=== PATIENT | female | born 1955 | race Caucasian/White ===

== ENCOUNTER 2020-07-29 12:23 | Outpatient (CLI) | payer MEDICARE, SELFPAY ==
--- NOTE | ~2020-07-29 | MM_ITS ---
EXAMINATION: MM screening willie BI w jackeline HISTORY: Screening mammogram TECHNIQUE: Craniocaudal and mediolateral oblique 3-D tomosynthesis images were obtained and synthetic 2-D images were generated. CAD analysis was submitted and interpreted. COMPARISON: 07/30/2018 diagnostic left digital mammogram and limited left breast ultrasound 06/23/2018, 10/14/2015 bilateral digital screening mammogram examinations BREAST PARENCHYMAL COMPOSITION: The breasts are heterogeneously dense, which may obscure small masses . FINDINGS: There is an approximately 11 mm circumscribed low-density opacity in the outer mid left pablo ast at mid to posterior depth, likely benign. Diagnostic left mammogram and left breast ultrasound re commended for confirmation. Otherwise there is no evidence of suspicious mass, calcification, or architectural distortion to sugg est malignancy in either breast. There has been no suspicious interval change. IMPRESSION: 1. 11 mm circumscribed mass in the outer mid left breast 2. Diagnostic left mammogram and left breast ultrasound examination are recommended. BI-RADS Category 0: Incomplete: Needs additional imaging evaluation. Reviewed, dictated and finalized at location A. OM BOW MAKER IMPRESSION: 1. 11 mm circumscribed mass in the outer mid left breast 2. Diagnostic left mammogram and left breast ultrasound examination are recomme nded. BI-RADS Category 0: Incomplete: Needs additional imaging evaluation.
== END 2020-07-29 12:24 | disposition home or self-care (01) ==
LOC: ANHIMG 12:26
PROVIDERS: PCP Internal Medicine; Visit Provider Obstetrics & Gynecology
DX: Z12.31 Encounter for screening mammogram for malignant neoplasm of breast (principal); R92.8 Other abnormal and inconclusive findings on diagnostic imaging of breast
CPT/HCPCS: 77063; 77067

== ENCOUNTER 2020-09-16 17:52 | Emergency (ER) | payer MEDICARE, SELFPAY ==
--- NOTE | ~2020-09-16 | CT_ITS ---
EXAMINATION: CT abdomen pelvis w con DATE: 09/16/2020 19:24 INDICATION: Abdominal pain. TECHNIQUE: Computed tomography (CT) of the abdomen and pelvis was performed with 100 cc Omnipaque 350 intravenous contrast. The dose-length product was 276.75 mGy-cm. Automated exposure control and iter ative reconstruction technique were employed. COMPARISON: CT dated 09/25/2008. FINDINGS: Lung bases are unremarkable. Heart size is normal. No significant pleural or pericardial ef fusion. Small hiatal hernia. Status post cholecystectomy with expected prominence of the bile ducts. The liver, spleen, pancreas, adrenal glands and left kidney are unremarkable. There is a right renal cyst. There are renal parapelvic cysts. Nonobstructive bowel gas pattern. No free air or free fluid. No acute osseous abnormality.The appendix is normal. No lymphadenopathy. No significant vascular abno rmality. IMPRESSION: 1. No acute abdominal abnormality. Reviewed, dictated and finalized at location A. ER BUFF SEWER
[2020-09-16 18:06] VITALS: BP 146/91; PULSE 104; RESP 16; TEMP 36.7; O2SAT 96
[2020-09-16 18:22] LABS: Basophils Percent Auto 0.3 % (0.2-1.2); Eosinophils Absolute Auto 0.2 K/mm3 (0-0.3); Eosinophils Percent Auto 1.4 % (0-4.4); Hematocrit 44.8 % (37.0-47.0); Hemoglobin 14.9 g/dL (12.0-15.0); Immature Granulocyte Absolute 0.04 K/mm3 (0.00-0.031); Immature Granulocyte Percent A 0.3 % (0-0.5); Lymphocytes Absolute Auto 2.96 K/mm3 (0.9-3.2); Lymphocytes Percent Auto 25.1 % (18.3-44.2); Mean Corpuscular HGB Conc 33.3 g/dl (32-36); Mean Corpuscular Hemoglobin 30.2 pg (26-34); Mean Corpuscular Volume 90.9 fl (80-100); Mean Platelet Volume 9.5 fl (7.4-10.4); Monocytes Absolute Auto 0.5 K/mm3 (0.1-0.6); Monocytes Percent Auto 3.8 % (2.6-8.5); Neutrophils Absolute Auto 8.2 K/mm3 (1.3-6.7); Neutrophils Percent Auto 69.1 % (45.5-73.1); Platelet Count Result 322 k/mm3 (150-375); Red Blood Count 4.93 M/mm3 (4.2-5.4); Red Cell Distribution Width 12.8 % (11.5-14.5); White Blood Count 11.8 K/mm3 (4.5-10.0)
--- NOTE | 2020-09-16 18:28 | ED.ABDPAIN ---
HPI - Abdominal Pain General Chief Complaint: Abdominal Pain Stated Complaint: abd pain Time Seen by Provider: 09/16/20 18:26 Source: patient Mode of arrival: ambulatory Limitations: no limitations History of Present Illness HPI narrative: Patient is a 65-year-old female complaining of diffuse abdominal pain, nonradiating, dull, 6 out of 10, accompanied by abdominal distention started today after drinking carbonated water. Patient denies any chest pain, shortness of breath, nausea, vomiting, diarrhea, fever or chills. Patient denies any urinary symptoms. Related Data Home Medications Medication Instructions Recorded Confirmed estradiol 0.5 mg tablet 0.5 mg PO DAILY 06/20/19 06/26/20 liothyronine 5 mcg tablet 5 mcg PO DAILY 06/20/19 06/26/20 niacin 400 mg (inositol niacinate cap PO 06/20/19 500 mg) capsule prasterone (dhea)-calcium tablet PO 06/20/19 carbonate 10 mg-47 mg calcium tablet vehicle base no.24 (bulk) applic MISCELLANE 06/20/19 levothyroxine 88 mcg tablet 88 mcg PO DAILY 06/24/19 06/26/20 progesterone micronized 200 mg 200 mg PO ONCE 06/24/19 06/26/20 capsule Allergies Allergy/AdvReac Type Severity Reaction Status Date / Time codeine AdvReac Mild Headache Verified 09/16/20 18:44 prochlorperazine AdvReac Mild Headache Verified 09/16/20 18:44 morphine AdvReac Headache Verified 09/16/20 18:44 Review of Systems Review of Systems: All systems reviewed & are unremarkable except as noted in HPI and below Constitutional: Constitutional: Denies body ache(s), Denies chills, Denies excessive sweating, Denies fatigue, Denies fever(s), Denies headache(s), Denies lethargy, Denies malaise, Denies weakness and Denies weight loss Eyes: Eyes: Denies blurry vision, Denies change in vision and Denies loss of vision ENT: Denies dizziness, Denies ear discharge, Denies headache(s), Denies lip swelling, Denies epistaxis, Denies nasal congestion, Denies neck pain, Denies throat swelling and Denies tongue swelling Cardiovascular: Cardiovascular: Denies chest pain, Denies chest pain at rest, Denies chest pain with activity, Denies diaphoresis, Denies rapid heart rate, Denies edema, Denies irregular heart rhythm, Denies lightheadedness, Denies palpitations, Denies dyspnea and Denies dyspnea on exertion Respiratory: Respiratory: Denies chest congestion, Denies cough, Denies hemoptysis, Denies dyspnea and Denies dyspnea on exertion Gastrointestinal: Gastrointestinal: Denies melena, Denies hematochezia, Denies diarrhea, Denies nausea, Denies vomiting and Denies hematemesis Musculoskeletal: Musculoskeletal: Denies abnormal gait, Denies deformity, Denies joint swelling, Denies limited range of motion, Denies neck pain and Denies numbness Neurologic: Denies Abnormal speech present, Denies abnormal gait, Denies confusion, Denies dizziness, Denies headache(s), Denies focal weakness, Denies loss of vision, Denies numbness, Denies Other visual disturbances, Denies Sensory deficit (Neuro) and Denies weakness Psychiatric: Psychiatric: Denies confusion, Denies depression, Denies auditory hallucinations, Denies homicidal ideation and Denies suicidal ideation Endocrine: Endocrine: Denies cold intolerance, Denies excessive sweating, Denies fatigue, Denies heat intolerance and Denies palpitations Hematologic/Lymphatic: Hematologic/Lymphatic: Denies easy bleeding and Denies easy bruising Allergic/Immunologic: Allergic/Immunologic: Denies lip swelling, Denies throat swelling and Denies tongue swelling PMFSH Family History Family History Mother Hypertension Father Patient's father is in good health Social History Social History Smoking status: Never smoker Second hand tobacco smoke exposure: No Alcohol intake: current Exam Const: General: cooperative, healthy appearing, comfortable, no acute distress, well developed
[2020-09-16 18:35] LABS: Alanine Aminotransferase 18 U/L (4-35); Albumin Level 4.3 g/dL (3.5-5.1); Alkaline Phosphatase 80 U/L (38-126); Anion Gap 9 mmol/L (8-16); Aspartate Amino Transferase 27 U/L (14-36); Bilirubin,Total 0.3 mg/dL (0.2-1.3); Blood Urea Nitrogen 17 mg/dL (7-17); Calcium 9.9 mg/dL (8.4-10.2); Carbon Dioxide 27 mmol/L (22-30); Chloride 105 mmol/L (98-107); Estimated CRCL calculation 51 ml/min; Estimated Glomerular Filt Rate > 60; Glucose 118 mg/dL (65-105); Lipase 62 U/L (23-300); Potassium 3.9 mmol/L (3.4-5.0); Sodium 141 mmol/L (137-145)
[2020-09-16 18:37] LABS: Add Urine Microscopic? YES; Appearance Urine Clear (Clear); Bacteria Urine Trace /hpf; Bilirubin Urine Negative (Negative); Color Urine Yellow (Yellow); Glucose Urine UA Negative (Negative); Ketones Urine Trace mg/dL (Negative); Leukocyte Esterase Ur 1+ LEU/UL (Negative); Mucus Urine Rare /lpf; Nitrate Urine Negative (Negative); Protein Urine 1+ mg/dL (Negative); Specific Grav Ur 1.028 (1.001-1.035); Squamous Epithelial Cell Urine Occasional /hpf (Few); Transitional Epi Cells Urine Rare /hpf (None Seen); Urobilinogen Urine Negative mg/dL (<2.0); WBC Urine 21-30 /hpf
[2020-09-16] MEDS: LACTATED RINGERS 1,000 ML 999 ML IV CONT (18:39)
[2020-09-16 18:40] LABS: Blood Urine Negative (Negative)
[2020-09-16] MEDS: HYDROmorphone HCL INJ (*CRX) 1 MG/ML SYR 0.5 MG IV PUSH (18:54)
[2020-09-16] MEDS: ONDANSETRON INJ 4 MG/2 ML VIAL IV PUSH (18:54)
[2020-09-16 20:20] VITALS: BP 134/82; PULSE 86; RESP 16; TEMP 36.7; O2SAT 99
== END 2020-09-16 20:21 | disposition home or self-care (01) ==
PROVIDERS: Emergency Medicine; Emergency Provider Emergency Medicine; PCP Internal Medicine
DX: R10.10 Upper abdominal pain, unspecified (principal)
CPT/HCPCS: 36415; 74177; 80053; 81001; 83690; 85025; 87086; 87088; 96361; 96374; 96375; 99284; J1170; J2405; J7120; Q9967

== ENCOUNTER 2020-09-21 13:11 | Outpatient (CLI) | payer MEDICARE, SELFPAY ==
--- NOTE | ~2020-09-21 | MMUS_ITS ---
EXAMINATION: MM diagnostic willie LT w jackeline, US breast LT complete HISTORY: Follow-up left breast masses TECHNIQUE: Additional 3-D tomosynthesis images of the left breast were performed and synthetic 2-D im ages were generated. CAD analysis was submitted and interpreted. High resolution complete left breast ultrasound was performed. COMPARISON: Comparison to multiple prior studies sequentially, with oldest reviewed study dated 12/2015. BREAST PARENCHYMAL COMPOSITION: The breasts are heterogenously dense, which may obscure small masses. FINDINGS: MAMMOGRAPHIC FINDINGS: There is a mass in the mid outer aspect of the left breast, middle third, partially obscured by fibro glandular tissue. There is another mass medially in the left breast, definitely only seen on CC view ULTRASOUND: Left breast ultrasound: There are multiple cysts in the left breast, largest at 2:00 position, 4 cm f rom the nipple measuring 1.8 cm maximum dimension. These correspond to the mammogram graphic findings . No suspicious masses to suggest malignancy. IMPRESSION: 1. No evidence for malignancy in the left breast. Benign cysts. 2. Routine yearly screening mammogram and regular clinical breast examination are recommended. BI-RADS Category 2: Benign finding(s). Reviewed, dictated and finalized at location A. IMPRESSION: 1. No evidence for malignancy in the left breast. Benign cysts. 2. Routine yearly screening mammogram and regular clinical breast examination a re recommended. BI-RADS Category 2: Benign finding(s).
== END 2020-09-21 13:12 | disposition home or self-care (01) ==
LOC: ANHIMG 13:12
PROVIDERS: PCP Internal Medicine; Visit Provider Obstetrics & Gynecology
DX: R92.8 Other abnormal and inconclusive findings on diagnostic imaging of breast (principal)
CPT/HCPCS: 76641; 77061; 77065; G0279

== ENCOUNTER → 2021-06-01 09:53 | Outpatient (CLI) | payer MEDICARE, SELFPAY ==
[2021-06-01 17:55] LABS: SARS-CoV-2 RNA PCR Negative
== END ==
PROVIDERS: PCP Internal Medicine; Visit Provider Internal Medicine
DX: R68.89 Other general symptoms and signs (principal); Z20.822 Contact with and (suspected) exposure to COVID-19
CPT/HCPCS: C9803; U0003; U0005

== ENCOUNTER 2022-12-13 12:19 | Outpatient (CLI) | payer MEDICARE, SELFPAY ==
--- NOTE | 2022-12-13 16:25 | WPDPFTINT ---
PFT Procedure Performed PFT Procedure Performed Spirometry with Pre/Post Bronchodilator Plethysmography (Lung Vol) Diffusing Cap (DLCO) Flow Vol Loop PFT Interpretation This is a pulmonary function test with pre and post-bronchodilator spirometry, plethysmography and diffusing capacity. The test was performed and results interpreted in accordance with the 2019 and 2005 ATS/ERS Task Force guidelines respectively using the Global Lung Function Initiative-2012 reference equations. Patient demonstrated good effort and cooperation. Reproducibility criteria were met. The quality of the pre bronchodilator spirometry maneuver was Grade A and post bronchodilator spirometry maneuver was Grade A. Findings: Spirometry: There is decreased maximal expiratory airflow at low lung volumes with concave expiratory flow tracing. The contour the inspiratory flow tracing is normal. The pre bronchodilator FVC is 2.51 L, 97% predicted. The pre bronchodilator FEV1 is 1.73 L, 86% predicted. The pre bronchodilator FEV1: FVC ratio 69%. The post bronchodilator FVC is 2.39 L, representing a 5% decrease. The post bronchodilator FEV1 is 1.79 L, representing a 4% increase. The post bronchodilator FEV1: FVC ratio is 75%. Plethysmography: The total lung capacity is 4.10 L, 89% predicted. The functional residual capacity is 2.57 L, 98% predicted. The residual volume is 1.59 L, 79% predicted. Diffusing capacity: The diffusing capacity unadjusted for hemoglobin and carboxyhemoglobin is 16.3, 84% predicted. The diffusing capacity adjusted for alveolar volume is 4.54, 102% predicted. Impression: The spirometry is normal without evidence of an obstructive abnormality. There is no significant improvement after inhaling a single dose of albuterol. The lung volumes are normal. The diffusing capacity is normal. There are no prior studies for comparison
== END 2022-12-13 12:20 | disposition home or self-care (01) ==
LOC: ANHPFT 12:19
PROVIDERS: PCP Internal Medicine; Visit Provider Internal Medicine Pulmonary Disease
DX: J45.909 Unspecified asthma, uncomplicated (principal)
CPT/HCPCS: 94060; 94726; 94729

== ENCOUNTER 2024-10-11 22:46 | Observation (INO) | payer MEDICARE, SELFPAY ==
--- NOTE | ~2024-10-11 | XR_ITS ---
CHEST RADIOGRAPH CLINICAL HISTORY: chest pain . COMPARISON: None available TECHNIQUE: Single portable view of the chest. FINDINGS The cardiomediastinal silhouette is unremarkable. The lungs are clear. IMPRESSION: No focal infiltrate or effusion. Reviewed, dictated and finalized at location A.
--- NOTE | ~2024-10-11 | CT_ITS ---
EXAMINATION: CTA chest abdomen pelvis DATE: 10/12/2024 00:10 INDICATION: Chest pain radiating to the back TECHNIQUE: Computed tomographic angiography (CTA) of the chest, abdomen and pelvis was performed with 100 cc of Omnipaque-350 intravenous contrast. Additional 3D reconstructions utilizing rotating maxim um intensity projection (MIP) were performed. Automated exposure control and iterative reconstruction technique were employed. The dose-length product was 349.97 mGy-cm. COMPARISON: CT abdomen pelvis dated 09/16/2020 FINDINGS: CHEST: Mild biapical pleural-parenchymal scarring and mild dependent atelectasis in bilateral lower lobes. N o pneumonia, pulmonary edema, pleural effusion or pneumothorax. Heart size is normal. No pericardial effusion. Atherosclerotic coronary artery calcification. Thoracic aorta is normal in caliber with no dissection. No pulmonary embolism. No pathologically enlarged thoracic lymphadenopathy. Mild thoracic dextrocurvature with mild spondylosis.. ABDOMEN AND PELVIS: Common bile duct is dilated to 9 mm likely related to prior cholecystectomy with surgical clips the g allbladder fossa. Liver is normal with no intrahepatic biliary ductal dilation. Spleen, pancreas, maldonado ateral adrenal glands and left kidney are normal. 2.1 cm right renal cyst. There are few sigmoid dive rticula without adjacent inflammatory stranding to suggest diverticulitis. Small bowel and appendix a re normal. Bladder, uterus and bilateral adnexa are unremarkable. No free intraperitoneal gas or flui d. No pathologically enlarged abdominal or pelvic lymphadenopathy. Minimal plaque along the normal ca liber abdominal aorta with no dissection. Circumaortic left renal veins with larger caliber retroaort ic vein.18 degrees lumbar levoscoliosis with mild to moderate spondylosis. IMPRESSION: 1. No aortic aneurysm or dissection. 2. No acute cardiopulmonary disease or acute intra-abdominal/pelvic process. Reviewed, dictated and finalized at location A.
--- NOTE | 2024-10-11 22:50 | ECG_ITS ---
Test Date: 2024-10-11 22:57:15 Measurements Intervals Ermine Rate: 120 P: 63 [place]: 113 QRS: -6 QRSD: 84 T: 73 QT: 336 QTc: 476 Interpretive Statements SINUS TACHYCARDIA WITH SHORT [place] INTERVAL POSSIBLE RIGHT VENTRICULAR CONDUCTION DELAY BORDERLINE ST-T WAVE ABNORMALITY- HIGH LATERAL LEADS BASELINE ARTIFACT- I, II, III, AVR, AVL, AVF, V1-V6 ABNORMAL ECG No previous ECG available for comparison Electronically Signed On 10-12-2024 07:14:31 CDT by Pasha Gomez D.O.
[2024-10-11 22:51] VITALS: BP 127/81; PULSE 120; RESP 20; TEMP 36.8; O2SAT 100
[2024-10-11 22:57] VITALS: RESP 22
[2024-10-11 22:58] VITALS: PULSE 118
[2024-10-11 23:07] LABS: Basophils Absolute Auto 0.1 K/mm3 (0.0-0.1); Basophils Percent Auto 0.4 % (0.2-1.2); Eosinophils Absolute Auto 0.1 K/mm3 (0-0.3); Eosinophils Percent Auto 0.9 % (0-4.4); Hematocrit 41.4 % (37.0-47.0); Hemoglobin 13.5 g/dL (12.0-15.0); Immature Granulocyte Absolute 0.04 K/mm3 (0.00-0.031); Immature Granulocyte Percent A 0.2 % (0-0.5); Lymphocytes Absolute Auto 3.48 K/mm3 (0.9-3.2); Lymphocytes Percent Auto 21.2 % (18.3-44.2); Mean Corpuscular HGB Conc 32.6 g/dl (32-36); Mean Corpuscular Hemoglobin 31.1 pg (26-34); Mean Corpuscular Volume 95.4 fl (80-100); Mean Platelet Volume 9.5 fl (7.4-10.4); Monocytes Absolute Auto 0.8 K/mm3 (0.1-0.6); Monocytes Percent Auto 4.8 % (2.6-8.5); Neutrophils Absolute Auto 11.9 K/mm3 (1.3-6.7); Neutrophils Percent Auto 72.5 % (45.5-73.1); Platelet Count Result 284 k/mm3 (150-375); Red Blood Count 4.34 M/mm3 (4.2-5.4); Red Cell Distribution Width 12.4 % (11.5-14.5); White Blood Count 16.4 K/mm3 (4.5-10.0)
--- OUTSIDE RECORDS SUMMARY | 2024-10-11 23:13 | XMS_ITS | Clinical Summary ---
Author Organization [facility] Address [address] [place] [address] Care Team Providers Care Controlled Area Checker Name Role Phone Irving Joy Fernanda BRUNNER Primary Care Provider [phone] Source Comments [facility],non-owned Affiliates and Associated Physician Practices is amultiple site organization consisting of ambulatory clinics and hospital sitesin [place], [place], [place] and [place]. This disclosure is being madepursuant to the Care Everywhere program and may not contain all information available regarding this patient. Last updated 18.[facility] Allergies Active Allergy Reactions Criticality Noted Date Comments Codeine 06/20/2017 Prochlorperazine 06/20/2017 Immunizations Name Administration Dates Next Due HEP B VACCINE, ADULT 3 DOSE 12/20/2017, 8,06/20/2017 Social History Tobacco Use Types Packs/Day Years Used Date Smoking Tobacco: Never Assessed Sex and Gender Information Value Date Recorded Sex Assigned at Not on file Gender Identity Not on file Sexual Orientation Not on file Plan of Treatment Health Maintenance Due Date Last Done Comments BONE DENSITY TESTING 1955 COLOGUARD (AGES 45-75) - COL ON CA SCREENING 1955 COLON MONITORING 1953 COLONOSCOPY - COLON CA SCREENING 1953 CT COLONOGRAPHY - COLON CA SCREENING 1953 Colorectal Cancer Screening 1955 FIT - COLON CA SCREENING 1953 FLEX SIG - COLON CA SCREENING 1953 LIPID TESTING 1953 MAMMOGRAM 1953 HEPATITIS C SCREENING 04/02/1971 DTAP/TDAP/TD VACCINES (1 - Tdap) 1972 PNEUMOCOCCAL VACCINE 50+ (1 of 1 - PCV) 2003 ZOSTER VACCINE (1 of 2) 2003 COVID-19 VACCINE (1 - 2023-2 5 season) 2024 INFLUENZA VACCINE (#1) 2024 DEPRESSION SCREENING 07/10/2024 Respiratory Syncytial Virus (RSV) Vaccine Pt: or over 60 yrs (1 - 1-dose 75+ series) 2028 HEPATITIS B VACCINE Completed 12/20/2017, 07/21/2017, 06/20/2017 HIB VACCINE Aged Out No longer eligi ble based on patient's age to complete this topic HPV VACCINE Aged Out No longer eligi ble based on patient's age to complete this topic MENINGOCOCCAL (Group B) VACCINE SHARED DECISION-MAKING Aged Out No longer eligible based on patient's age to complete this topic MENINGOCOCCAL GROUPS A/C/Y/W VACCINE Aged Out No longer eligible b ased on patient's age to complete this topic Care Teams Controlled Area Checker Relationship Specialty Start Date End Date Irving Joy DO [address] [facility] [address] [place] [address] PCP - General Internal Medicine 06/20/17
--- OUTSIDE RECORDS SUMMARY | 2024-10-11 23:13 | XMS_ITS | CONTINUITY OF CARE DOCUMENT ---
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 Name Role Phone Randy BRUNER, Tigist Unavailable REJI PUENTES MD Unavailable EUGENIA GERBER DO Unavailable [phone] PROBLEMS Condition Status Date Provider Notes Cardiovascular screening completed - Tigist Padilla MD Atherosclerosis, coronary--CCS 278 -09/30- Nl perfusion 11/30 active Tigist Padilla MD Family hx of heart disease, AFIB active Tigist Padilla MD Hypothyroidism active Tigist Padilla MD Mitral regurgitation, moderate active Tigist Padilla MD Atrial fib paroxysmal completed - Tigist Padilla MD Chest pain active 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 CAD--mild w/o obstruction in LAD, 50-60% RCA, 06/2024 active Andrea Penny ENCOUNTERS Date Type Provider Location Encounter Diag nosis - In-person encounter Office Visit Tigist Padilla MD [facility] - In-person encounter Office Visit Tigist Padilla MD [facility] [place] [facility] CAD--mild w/o obstru ction in LAD, 50-60% RCA, 06/2024 - In-person encounter Office Visit Tigist Padilla MD [facility] Chest pain - In-person encounter Office Visit Tigist Padilla MD [facility] Atrial fib paroxysmal - In-person encounter Office Visit Tigist Padilla MD [facility] Atherosclerosis, coronary--CCS 278 -09/30- Nl perfusion 11/30Mitral regurgitation, moderate - In-person encounter Office Visit Tigist Padilla MD [facility] Cardiovascular screeningAtherosclerosis, coronary--CCS 278 -24- Nl perfusion 11/30Family hx of heart disease, AFIBHypothyroidism VITAL SIGNS Date Observation Value Provider Body Mass Index (Ratio) 23.43 kg/m2 Aime Padilla MD blood pressure, diastolic 87 mm[Hg] Ti ruddy Cohen blood pressure, systolic 131 mm[Hg] Tif kristy Cohen oxygen saturation, oximetry 98 % Catie Cohen pulse rate 94 /min Catie Saunder s blood pressure, cuff size regular Ti ffabrenna Cohen weight E&M 124 [lb_av] Catie Saunder s height E&M 61 [in_i] Catie Saunder s Body Mass Index (Ratio) 23.80 kg/m2 Aime Padilla MD blood pressure, diastolic 73 mm[Hg] Ka yla Ruple blood pressure, systolic 124 mm[Hg] Sakshi la Ruple oxygen saturation, oximetry 99 % Taylor Ruyair pulse rate 78 /min Taylor Ruple weight E&M 126 [lb_av] Taylor Ruple height E&M 61 [in_i] Taylor Ruple Body Mass Index (Ratio) 23.99 kg/m2 Aime Padilla MD blood pressure, diastolic 79 mm[Hg] Angelita nkLogic blood pressure, systolic 117 mm[Hg] Peace kLog blood pressure, diastolic 79 mm[Hg] Batsheva Wiley blood pressure, systolic 117 mm[Hg] Amrita Wiley oxygen saturation, oximetry 100 % Barbie Wiley pulse rate 99 /min Barbie Wiley respiratory rate E&M 12 /min Baribe Wiley weight E&M 127 [lb_av] Barbie Wiley height E&M 61 [in_i] [facility], [facility] regular Batsheva Wiley Body Mass Index (Ratio) 25.32 kg/m2 Aime Padilla MD respiratory rate E&M 16 /min Shanon Posley blood pressure, diastolic 77 mm[Hg] Le slie Posley blood pressure, systolic 134 mm[Hg] Les lie Posley pulse rate 81 /min Shanon Posley oxygen saturation, oximetry 96 % Shanon Posley blood pressure, cuff size regular Le slie Posley weight E&M 134 [lb_av] Shanon Posley height E&M 61 [in_i] Shanon Posley Body Mass Index (Ratio) 25.32 kg/m2 Aime Padilla MD blood pressure, cuff size regular Ke rri Bipin blood pressure, diastolic 80 mm[Hg] Ke rri Gruenejadeneldneftaly blood pressure, systolic 142 mm[Hg] Kenton Voss oxygen saturation, oximetry 97 % Carolina Voss respiratory rate E&M 12 /min Carolina hancock pulse rate 95 /min Carolina Upton lder weight E&M 134 [lb_av] Carolina Upton lder height E&M 61 [in_i] Carolina Upton er Body Mass Index (Ratio) 23.43 kg/m2 Aime Padilla MD blood pressure, diastolic 81 mm[Hg] Li nkLogic blood pressure, systolic 146 mm[Hg] Peace kLogic pulse rate 96 /min Lu [place] blood pressure, diastolic 81 mm[Hg] Franko [facility] blood pressure, systolic 146 mm[Hg] Nitesh [facility] oxygen saturation, oximetry 98 % [facility] respiratory rate E&M 14 /min Lu Greg iller weight E&M 124 [lb_av] [facility] height E&M 61 [in_i] [facility] blood pressure, cuff size regular [facility] ALLERGIES Allergy Name Onset Date Reaction Criticality Status CODEINE High Criticality active MORPHINE High Criticality active COMPAZINE High Criticality active RESULTS Date Observation Value Provider Reference Range Interpretation Location 3 ferritin, serum 47 ng/mL LinkLogic 15-150 3 magnesium, serum 2.4 mg/dL Link[facility] 1.6-2.3 High 3 iron saturation percent, serum 19 % [facility] 15-55 3 iron, serum 74 ug/dL [facility] 27-139 3 iron binding capacity, unsaturated 307 ug/dL [facility] 211-275 4764/08/2 3 iron binding capacity, total 381 ug/dL [facility] 940-707 2400/08/2 3 lipoprotein, beta, serum, point, quantitative, calculated 60 mg/dL [facility] 0-99 3 HDL cholesterol, serum 55 mg/dL [facility] >39 3 triglyceride, serum, random 87 mg/dL [facility] 0-149 3 cholesterol, serum 132 mg/dL [facility] 685-478 4581/08/2 3 alanine aminotransferase (SGPT), serum 17 1/L [facility] 0-32 3 aspartate aminotransferase (SGOT), serum 24 1/L [facility] 0-40 3 alkaline phosphatase, serum 68 1/L [facility] 44-121 3 bilirubin, serum, total 0.4 mg/dL [facility] 0.0-1.2 3 globulin, serum 2.6 [facility] 1.5-4.5 3 albumin, serum 3.9 g/dL [facility] 3.9-4.9 3 protein, total, serum 6.5 g/dL [facility] 6.0-8.5 3 calcium, serum 8.9 mg/dL [facility] 8.7-10.3 3 carbon dioxide, venous blood 22 mmol/L [facility] 20-29 3 chloride, serum 104 mmol/L [facility] 96-106 3 potassium, serum 4.5 mmol/L [facility] 3.5-5.2 3 sodium, serum 139 mmol/L [facility] 114-031 9160/08/2 3 urea nitrogen/creatinine ratio, serum 22 [facility] 12-28 3 creatinine, serum 0.95 mg/dL [facility] 0.57-1.00 3 urea nitrogen, blood 21 mg/dL [facility] 8-27 3 blood glucose, random 92 mg/dL [facility] 70-99 2 basophil count, absolute 0.1 x10E3/uL [facility] 0.0-0.2 2 Eosinophil Absolute Count 0.2 X10E3/UL [facility] 0.0-0.4 2 monocyte count, blood, automated 0.6 X10E3/UL [facility] 0.1-0.9 2 lymphocyte count, blood, automated 2.5 X10E3/UL [facility] 0.7-3.1 2 Absolute Neutrophils 5.1 X10E3/UL [facility] 1.4-7.0 2 basophils as percent of blood leukocytes 1 % [facility] Not Estab. 2 eosinophils as percent of blood leukocytes 2 % [facility] Not Estab. 2 monocytes as percent of blood leukocytes 7 % [facility] Not Estab. 2 lymphocytes as percent of blood leukocytes 30 % [facility] Not Estab. 2 neutrophils as percent of blood leukocytes 60 % [facility] Not Estab. 2 platelet count 291 X10E3/UL [facility] 766-209 8169/08/2 2 red blood cell distribution width 13.4 % [facility] 11.7-15.4 2 mean corpuscular hemoglobin concentration, RBC 32.5 G/DL [facility] 31.5-35.7 2 mean corpuscular hemoglobin, RBC 29.8 pg [facility] 26.6-33.0 2 mean corpuscular volume, RBC 92 fL [facility] 79-97 2 hematocrit, blood 40.3 % [facility] 34.0-46.6 2 hemoglobin, blood 13.1 g/dL [facility] 11.1-15.9 2 erythrocyte (RBC) count 4.39 X10E6/UL [facility] 3.77-5.28 2 leukocyte count, blood 8.4 X10E3/UL [facility] 3.4-10.8 HISTORY OF MEDICATION USE Medication Status Instructions Dates Provider Indications Com ments acyclovir 800 mg tablet active Catie Cohen clopidogrel 75 mg tablet active TAKE 1 TABLET BY MOUTH DAILY Andrea Penny rosuvastatin 20 mg tablet active TAKE 1 TABLET BY MOUTH DAILY Taylor Cuha metoprolol succinate 25 mg tablet extended release 24 hr active TAKE 1 TABLET BY MOUTH DAILY Jami Alvarado RN metoprolol succinate 25 mg tablet extended release 24 hr completed Take 1 tablet by mouth once a day - Jami Alvarado RN aspirin 81 mg tablet,delayed release (DR/EC) active Take 1 tablet by mouth once a day Andrea Penny rosuvastatin 20 mg tablet completed Take 1 tablet by mouth once a day - Taylor Chua montelukast 10 mg tablet active [facility] alprazolam 0.25 mg tablet active Take 1 as needed as directed [facility] ondansetron 4 mg tablet,disintegrat ing active [facility] estradiol 0.01% (0.1 mg/gram) cream active Apply 1 mg once a day [facility] ondansetron HCl 4 mg tablet active [facility] estradiol 1 mg tablet active [facility] liothyronine 5 mcg tablet active once a day [facility] SEMAGLUTIDE 1MG/ML INJECTION Milliliters active MONTH #3 INJECT 0.5ML (50 SYRINGE UNITS) SUBCUTANEOUSLY ONCE WEEKLY. DISCARD VIAL 28 DAYS AFTER PUNCTURE. [facility] Myrbetriq 25 mg tablet extended release 24 hr active [facility] Dulera 200-5 mcg/actuation HFA aerosol inhaler active [facility] nitrofurantoin monohyd/m-cryst 100 mg capsule active [facility] Ventolin HFA 90 mcg/actuation HFA aerosol inhaler active [facility] progesterone micronized 200 mg capsule active [facility] Synthroid 88 mcg tablet active [facility] nitrofurantoin macrocrystal 100 mg capsule active [facility] SOCIAL HISTORY Date Observation Value Provider smoking status Current every day smoker R jennifer Penny smoking status Current every day smoker R jennifer Penny smoking status Current every day smoker R jennifer Penny smoking status Current every day smoker Adonay Yi FUNCTIONAL STATUS Date Observation Value Provider HRA, CV Assess/Plan, Angina (inactive) Management Plan continue current therapy Andrea Penny HRA, CV Assess/Plan, Angina (inactive) Management Plan continue current therapy Andrea Penny HRA, CV Assess/Plan, Angina (inactive) Management Plan continue current therapy Andrea Penny INSURANCE PROVIDERS Payer name Policy type / Coverage type Steve red green party ID [employer] [id number] [place] [employer] Medicare [id number] ADVANCE DIRECTIVES Name Date DISCUSSED - NO DECISION MADE TREATMENT PLAN Date Name Performer Cardiology: H er updated medication list for this problem includes: Liothyronine 5 Mcg Tablet (Liothyronine) ..... Once a day Synthroid 88 Mcg Tablet (Levothyroxine) Tigist Padilla MD Cardiology Tigist Padilla MD Cardiology: H er updated medication list for this problem includes: Clopidogrel 75 Mg Tablet (Clopidogrel) ..... Take 1 tablet by mouth daily Metoprolol Succinate 25 Mg Tablet Extended Release 24 Hr (Metoprolol succinate) ..... Take 1 tablet by mouth daily Aspirin 81 Mg Tablet,delayed Release (dr/ec) (Aspirin) ..... Take 1 tablet by mouth once a day Tigist Padilla MD Cardiology:This visi t has been a part of the consistent, comprehensive, and ongoing management of the chronic medical condition(s) listed above for the patient. Her updated medication list for this problem includes: Clopidogrel 75 Mg Tablet (Clopidogrel) ..... Take 1 tablet by mouth daily Metoprolol Succinate 25 Mg Tablet Extended Release 24 Hr (Metoprolol succinate) ..... Take 1 tablet by mouth daily Aspirin 81 Mg Tablet,delayed Release (dr/ec) (Aspirin) ..... Take 1 tablet by mouth once a day Tigist Padilla MD Cardiology: H er updated medication list for this problem includes: Liothyronine 5 Mcg Tablet (Liothyronine) ..... Once a day Synthroid 88 Mcg Tablet (Levothyroxine) Tigist Padilla MD Cardiology: H er updated medication list for this problem includes: Clopidogrel 75 Mg Tablet (Clopidogrel) ..... Take 1 tablet by mouth daily Metoprolol Succinate 25 Mg Tablet Extended Release 24 Hr (Metoprolol succinate) ..... Take 1 tablet by mouth daily Aspirin 81 Mg Tablet,delayed Release (dr/ec) (Aspirin) ..... Take 1 tablet by mouth once a day Tigist Padilla MD Cardiology Tigist Padilla MD Cardiology: H er updated medication list for this problem includes: Clopidogrel 75 Mg Tablet (Clopidogrel) ..... Take 1 tablet by mouth daily Metoprolol Succinate 25 Mg Tablet Extended Release 24 Hr (Metoprolol succinate) ..... Take 1 tablet by mouth daily Aspirin 81 Mg Tablet,delayed Release (dr/ec) (Aspirin) ..... Take 1 tablet by mouth once a day Tigist Padilla MD Cardiology:This visi t has been a part of the consistent, comprehensive, and ongoing management of the chronic medical condition(s) listed above for the patient. Her updated medication list for this problem includes: Clopidogrel 75 Mg Tablet (Clopidogrel) ..... Take 1 tablet by mouth daily Metoprolol Succinate 25 Mg Tablet Extended Release 24 Hr (Metoprolol succinate) ..... Take 1 tablet by mouth daily Aspirin 81 Mg Tablet,delayed Release (dr/ec) (Aspirin) ..... Take 1 tablet by mouth once a day Tigist Padilla MD Cardiology:with elev ated calcium score H er updated medication list for this problem includes: Metoprolol Succinate 25 Mg Tablet Extended Release 24 Hr (Metoprolol succinate) ..... Take 1 tablet by mouth daily Aspirin 81 Mg Tablet,delayed Release (dr/ec) (Aspirin) ..... Take 1 tablet by mouth once a day T his visit has been a part of the consistent, comprehensive, and ongoing management of the chronic medical condition(s) listed above for the patient. Tigist Padilla MD Cardiology:with elev ated calcium score H er updated medication list for this problem includes: Metoprolol Succinate 25 Mg Tablet Extended Release 24 Hr (Metoprolol succinate) ..... Take 1 tablet by mouth daily Aspirin 81 Mg Tablet,delayed Release (dr/ec) (Aspirin) ..... Take 1 tablet by mouth once a day Jami RIOJASP Cardiology: H er updated medication list for this problem includes: Liothyronine 5 Mcg Tablet (Liothyronine) ..... Once a day Synthroid 88 Mcg Tablet (Levothyroxine) Jami Carpenter [facility] Cardiology:unchanged EF normal A steffany Carpenter [facility] Cardiology:She has b een experiencing anginal type chest pain more progressive in nature E cho with normal EF, moderate MR N egative stress cardiolite earlier this year E levated coronary calcium score of 278 W ill do EKG and plan C c ontinue asa, statin and BB W ill plan [facility] to look for ischemia H er updated medication list for this problem includes: Metoprolol Succinate 25 Mg Tablet Extended Release 24 Hr (Metoprolol succinate) ..... Take 1 tablet by mouth daily Aspirin 81 Mg Tablet,delayed Release (dr/ec) (Aspirin) ..... Take 1 tablet by mouth once a day Jami Carpenter [facility] Cardiology: H er updated medication list for this problem includes: Metoprolol Succinate 25 Mg Tablet Extended Release 24 Hr (Metoprolol succinate) ..... Take 1 tablet by mouth once a day Aspirin 81 Mg Tablet,delayed Release (dr/ec) (Aspirin) ..... Take 1 tablet by mouth once a day T his visit has been a part of the consistent, comprehensive, and ongoing management of the chronic medical condition(s) listed above for the patient. Tigist Padilla MD Cardiology: H er updated medication list for this problem includes: Metoprolol Succinate 25 Mg Tablet Extended Release 24 Hr (Metoprolol succinate) ..... Take 1 tablet by mouth once a day Aspirin 81 Mg Tablet,delayed Release (dr/ec) (Aspirin) ..... Take 1 tablet by mouth once a day Andrea Penny Cardiology: H er updated medication list for this problem includes: Liothyronine 5 Mcg Tablet (Liothyronine) ..... Once a day Synthroid 88 Mcg Tablet (Levothyroxine) Andrea Penny Cardiology Andrea Penny Cardiology: H er updated medication list for this problem includes: Metoprolol Succinate 25 Mg Tablet Extended Release 24 Hr (Metoprolol succinate) ..... Take 1 tablet by mouth once a day Aspirin 81 Mg Tablet,delayed Release (dr/ec) (Aspirin) ..... Take 1 tablet by mouth once a day Andrea Reillyamerica Cardiology: O rders: C omplete Echo (21939) S tress Exercise Cardiolite (CPT-49216) Andrea Reillyi Cardiology: O rders: C omplete Echo (97485) S tress Exercise Cardiolite (CPT-18324) Andrea Reillyi Cardiology: H er updated medication list for this problem includes: Liothyronine 5 Mcg Tablet (Liothyronine) ..... Once a day Synthroid 88 Mcg Tablet (Levothyroxine) Andrea Penny Date Name PROTHROMBIN TIME WIT H INR LIPID PANEL CBC (INCLUDES DIFF/P LT) BASIC METABOLIC PANE L W/EGFR Complete Echo Carotid Duplex Bilat eral MAGNESIUM IRON AND TOTAL IRON BINDING CAPACITY FERRITIN CBC (INCLUDES DIFF/P LT) LIPID PANEL COMPREHENSIVE METABO LIC PANEL, W/EGFR Stress Exercise Card iolite Complete Echo CT, Coronary Calcium Score HISTORY OF PROCEDURES Procedure Date Procedure Name Provider Procedure Notes S tatus Complex e/m visit add on Tigist Padilla MD completed Complex e/m visit add on Tigist Padilla MD completed Complex e/m visit add on Tigist Padilla MD completed Complex e/m visit add on Tigist Padilla MD completed Complex e/m visit add on Tigist Padilla MD completed CT- Coronary CA score Tigist Padilla MD completed
--- OUTSIDE RECORDS SUMMARY | 2024-10-11 23:13 | XMS_ITS | Continuity of Care Document ---
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 [address] , [address], [place], [address], [place]. tel:[phone] Family History Family Member Type Diagnosis Age At Onset No Information Payers Payer name Insurance type Covered libertarian ID Authoriza tion(s) No Information Social History Type Description Quantity Date Captured Comments Sex Female Smoking Status No Information Chief Complaint And Reason For Visit No Information Reason For Referral Reason For Referral No Information History Of Present Illness Encounter Date Complaint History Of Prese nt Illness No Information Functional Status Date Functional Assessmen t No Information Instructions Date Instruction Additional Infor mation No Information Assessments Type Assessment Date No Information Patient Care Teams Name Effective Dates (start - stop) Status Members No Information
[2024-10-11 23:16] LABS: Alanine Aminotransferase 19 U/L (6-35); Albumin Level 4.3 g/dL (3.5-5.1); Alkaline Phosphatase 65 U/L (38-126); Anion Gap 13 mmol/L (4-12); Aspartate Amino Transferase 24 U/L (14-36); Bilirubin,Total 0.4 mg/dL (0.2-1.3); Blood Urea Nitrogen 24 mg/dL (7-17); Carbon Dioxide 24 mmol/L (22-30); Chloride 103 mmol/L (98-107); Estimated CRCL calculation 46 ml/min; Estimated Glomerular Filt Rate > 60; Glucose 124 mg/dL (65-110); Lipase 106 U/L (23-300); Potassium 3.6 mmol/L (3.4-5.0); Sodium 140 mmol/L (137-145)
[2024-10-11 23:19] LABS: Partial Thromboplastin Time 26.7 Seconds (22.3-36.8); Prothrombin Time 13.8 Seconds (11.1-14.7)
[2024-10-11 23:26] LABS: Troponin I < 0.012 ng/mL (0.000-0.034)
--- NOTE | 2024-10-11 23:27 | ED_ITS ---
HPI - General Adult General Chief complaint: Unspecified Stated complaint: chest pain Time Seen by Provider: 10/11/24 23:02 Source: patient, family and RN notes reviewed Mode of arrival: EMS Limitations: no limitations History of Present Illness HPI narrative: Patient presents with chest pain and SOB starting at 20:00. A bit earlier, she had taken a pill and states it felt like a pill was stuck in her throat. Rated 8/10 in severity. This has happened before and had been attributed to GERD and for that she takes 20mg Pepcid. She also has a legal adviser, Dr Padilla, through [facility]. Has been told she has 2 leaky heart denisa, believes mitral and another. Describes the pain as heavy. Radiates bilaterally and becomes stabbing. History of asthma. EMS administered aspirin. Swallowing makes it worse. Pain also radiates to back. History of a cardiac cath July 04 which showed 50-60% stenosis of RCA but no stenting. On clopidogrel. Cardiac risk factors HTN: Yes (per patient it was an erroneous diagnosis but she was placed on antihypertensives approximately 6 mos ago, metoprolol 12.5) HLD: Yes DM: 0 Obese: 0 Smoker: 0 Personal history [place]/TIA/CVA or CAD: Known CAD with 50-60% stenosis on cath with no stents Fam Hx [place] in first degree relative <65yo: 0 Related Data Home Medications ?Medication ?Instructions ?Recorded ?Confirmed ?Last Taken ?Type estradiol 0.5 mg tablet 0.5 mg PO HS 06/20/19 10/12/24 10/11/24 20:00 History vehicle base no.24 (bulk) See Rx Instructions miscellaneous 06/20/19 10/12/24 10/11/24 08:00 History (Versabase Cream) .COMPLEX levothyroxine 88 mcg tablet 88 mcg PO DAILY 06/24/19 10/12/24 10/11/24 07:00 History (Synthroid) progesterone micronized 200 mg 200 mg PO QPM 06/24/19 10/12/24 10/11/24 08:00 History capsule estradiol 0.01% (0.1 mg/gram) 1 g vaginal 2XW 07/17/23 10/12/24 10/10/24 History vaginal cream (Estrace) semaglutide (weight loss) 2.4 2.4 mg subcut WEEKLY 07/17/23 10/12/24 10/08/24 History mg/0.75 mL subcutaneous pen injector metoprolol succinate 25 mg 12.5 mg PO HS 01/17/24 10/12/24 10/11/24 20:00 History tablet,extended release 24 hr rosuvastatin 20 mg tablet 20 mg PO HS 01/17/24 10/12/24 10/11/24 20:00 History clopidogrel 75 mg tablet 75 mg PO DAILY 08/05/24 10/12/24 10/11/24 20:00 History Balance of Nature vitamins See Rx Instructions .Route .COMPLEX 10/12/24 10/12/24 10/11/24 08:00 History fruit/vegetable Ecosleep See Rx Instructions .Route .COMPLEX 10/12/24 10/12/24 Unknown History Eye promise OTC See Rx Instructions .Route .COMPLEX 10/12/24 10/12/24 10/11/24 08:00 History alprazolam 0.25 mg tablet 0.125 mg PO HS PRN anxiety 10/12/24 10/12/24 Unknown History famotidine 20 mg tablet (Pepcid) 20 mg PO DAILY 10/12/24 10/12/24 10/11/24 08:00 History liothyronine 5 mcg tablet 15 mcg PO QAM 10/12/24 10/12/24 10/11/24 08:00 History loratadine 10 mg tablet 10 mg PO DAILY 10/12/24 10/12/24 Unknown History magnesium glycinate 400 mg PO HS for sleep 10/12/24 10/12/24 10/11/24 20:00 History montelukast 10 mg tablet 10 mg PO QPM 10/12/24 10/12/24 10/11/24 20:00 History ondansetron 4 mg disintegrating 4 mg translingual Q8H PRN nausea 10/12/24 10/12/24 Unknown History tablet and vomiting prasterone (dhea) 25 mg capsule 25 mg PO QAM 10/12/24 10/12/24 10/11/24 08:00 History pro-biotic See Rx Instructions .Route .COMPLEX 10/12/24 10/12/24 10/11/24 08:00 History Allergies Allergy/AdvReac Type Severity Reaction Status Date / Time codeine AdvReac Mild Headache Verified 10/12/24 07:02 prochlorperazine AdvReac Mild Headache Verified 10/12/24 07:02 morphine AdvReac Headache Verified 10/12/24 07:02 [facility] Past Medical History Medical History Leaky heart valve URI, acute Screening mammogram, encounter for Pruritic rash Internal hemorrhoids Dietary counseling and surveillance (09/21/16) Colon cancer screening Bilateral lower extremity edema High cholesterol Asthma Surgical History Surgical History History of cardiac cath Jun 2024 History of hysterectomy, 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 History of dilation and curettage (07/14/03) hscope d&c/endometrial ablation--menometrorrhagia History of endometrial ablation (07/14/03) hscope d&c/endometrial ablation--menometrorrhagia History of partial thyroidectomy (~2003) right thyroidectomy History of cholecystectomy (~1999) History of Family History Family History (Updated 10/12/24 @ 08:14 by Sommer Osorio RN) Mother Dementia Chronic renal failure Hypertension Father Cerebrovascular accident A-fib Social History Social History Smoking status: Never smoker Second hand tobacco smoke exposure: Yes Alcohol intake: never Substance use: never Substance use type: does not use Do You Feel Safe in your Home?: Yes Lack of Transportation: No Lack of Food: Never True Current Housing: I Have Housing Concerned About Future Housing: No Difficulty Paying Gas/Electric Bills: No Difficulty Paying for Meds: No Currently Unemployed: No Education: Bachelor's Degree Difficulty w/ Childcare or Family Care: YES Living arrangements: with family Spiritual care concerns: No Exam 2 Narrative: GENERAL: Well-appearing, well-nourished, and in no acute distress. HEAD: Normocephalic, atraumatic. EYES: Non injected, non icteric ENT: Nares clear, no rhinorrhea or epistaxis. NECK: Supple. CHEST: Speaking in full sentences. No respiratory distress. HEART: Regular rate and rhythm. . ABDOMEN: Soft, nondistended. EXTREMITIES: Normal range of motion. No bilateral lower extremity edema. SKIN: Warm, dry, no rash. NEURO: No focal deficits. Alert and oriented x3. PSYCH: Normal mood and affect. Course Vital Signs Vital signs: Vital Signs Temperature 98.2 F 10/11/24 22:51 Pulse Rate 120 H 10/11/24 22:51 Respiratory Rate 20 10/11/24 22:51 Blood Pressure 127/81 10/11/24 22:51 Pulse Oximetry 100 10/11/24 22:51 Oxygen Delivery Room Air 10/11/24 22:51 Temperature 97.7 F 10/13/24 04:20 Pulse Rate 101 H 10/13/24 04:20 Respiratory Rate 16 10/13/24 04:20 Blood Pressure 92/53 L 10/13/24 04:20 Pulse Oximetry 95 10/13/24 04:20 Oxygen Delivery Room Air 10/12/24 21:02 Medical Decision Making MDM Narrative Medical decision making narrative: Patient presents with acute onset CP and SOB at 20:00. Around that time, she had taken a pill. Has a sensation that it is stuck in her throat. History GERD. Cardiac cath in the past 6 months. In the emergency department she is afebrile vital signs notable for tachycardia. She has a leukocytosis. HEART SCORE History 2 highly suspicious 1 moderately suspicious 0 slightly suspicious History score [address] depression/elevation not due to LBBB, LVH, or digoxin [address] depression but LBBB, LVH, nonspecific repolarization changes 0 normal ECG score 1 Age 2 >/= 65 1 45-64 0 <45 Age score 2 Risk factors (HTN, hypercholesterolemia, DM, obesity with BMI >30, current smoker or cessation </=3mo), positive fam hx with parent or sibling with CVD before age 65, atherosclerotic disease (prior [place], PCI/CABG, CVA/TIA, or peripheral arterial disease) 2 >/= 3 risk factors or history of atherosclerotic dz 1 - 1-2 risk factors 0 no known risk factors Risk factor score 2 (HLD, CAD w/ 50-60% blockage on cath w/o stents, +/- HTN - patient states it was a wrong diagnosis) Initial Troponin 2 >3 times normal limit 1 1-3 times normal limit 0 less than or equal to normal limit Troponin score 0 Total HEART Score 5. Repeat troponin normal. Her legal adviser is Dr Randy nieves [facility]. We discussed that based on her overall risk, the recommendation is admission. Patient discussed with head correction officer hospitalist ; admission orders placed. Differential Diagnosis Differential Diagnosis: Aortic dissection, pill esophagitis, pulmonary embolism, ACS, food bolus; biliary colic; stable/unstable angina; GERD/gastritis Vital Signs Vital Signs: Vital Signs Temperature 98.2 F 10/11/24 22:51 Pulse Rate 120 H 10/11/24 22:51 Respiratory Rate 20 10/11/24 22:51 Blood Pressure 127/81 10/11/24 22:51 Pulse Oximetry 100 10/11/24 22:51 Oxygen Delivery Room Air 10/11/24 22:51 Temperature 97.7 F 10/13/24 04:20 Pulse Rate 101 H 10/13/24 04:20 Respiratory Rate 16 10/13/24 04:20 Blood Pressure 92/53 L 10/13/24 04:20 Pulse Oximetry 95 10/13/24 04:20 Oxygen Delivery Room Air 10/12/24 21:02 Lab Data Lab results reviewed: Yes I reviewed the patient's lab results. 10/13/24 05:20 10/13/24 05:20 Labs: Lab Results 10/11/24 10/12/24 Range/Units 23:00 02:19 WBC 16.4 H (4.5-10.0) K/mm3 RBC 4.34 (4.2-5.4) M/mm3 Hgb 13.5 (12.0-15.0) g/dL Hct 41.4 (37.0-47.0) % MCV 95.4 (80-100) fl MCH 31.1 (26-34) pg MCHC 32.6 (32-36) g/dl RDW 12.4 (11.5-14.5) % Plt Count 284 (150-375) k/mm3 MPV 9.5 (7.4-10.4) fl Immature Gran % (Auto) 0.2 (0-0.5) % Neut % (Auto) 72.5 (45.5-73.1) % Lymph % (Auto) 21.2 (18.3-44.2) % Gove % (Auto) 4.8 (2.6-8.5) % Eos % (Auto) 0.9 (0-4.4) % Baso % (Auto) 0.4 (0.2-1.2) % Lymph # (Auto) 3.48 H (0.9-3.2) K/mm3 Gove # (Auto) 0.8 H (0.1-0.6) K/mm3 Eos # (Auto) 0.1 (0-0.3) K/mm3 Baso # (Auto) 0.1 (0.0-0.1) K/mm3 Abs Immat Gran (auto) 0.04 H (0.00-0.031) K/mm3 Absolute Neuts (auto) 11.9 H (1.3-6.7) K/mm3 Absolute Nucleated RBC 0.000 (0.0-0.012) K/mm3 Nucleated RBC % 0.0 (0.0-0.2) % PT 13.8 (11.1-14.7) Seconds INR 1.0 APTT 26.7 (22.3-36.8) Seconds Sodium 140 (137-145) mmol/L Potassium 3.6 (3.4-5.0) mmol/L Chloride 103 (98-107) mmol/L Carbon Dioxide 24 (22-30) mmol/L Anion Gap 13 H (4-12) mmol/L BUN 24 H (7-17) mg/dL Creatinine 0.73 (0.7-1.0) mg/dL Estim Creat Clear Calc 46 ml/min Estimated GFR > 60 (59 - ) Glucose 124 H (65-110) mg/dL Calcium 9.0 (8.4-10.2) mg/dL Total Bilirubin 0.4 (0.2-1.3) mg/dL AST 24 (14-36) U/L ALT 19 (6-35) U/L Alkaline Phosphatase 65 (38-126) U/L Troponin I < 0.012 < 0.012 (0.000-0.034) ng/mL Total Protein 8.0 (6.3-8.2) g/dL Albumin 4.3 (3.5-5.1) g/dL Lipase 106 (23-300) U/L Imaging Data Radiologist's impression: CTA Chest Stat Rad: No aortic aneurysm or dissection. No evidence of pulmonary embolism. No acute findings in the chest. Incidental findings: Coronary artery atherosclerosis. No pericardial effusion. No consolidation, pleural effusion, or pneumothorax. No acute fracture dislocation. CTA Abd & Pelvis Stat Rad: No aortic aneurysm or dissection. Intra-abdominal aortic branch vessels are patent. No acute findings. Incidental findings: Cholecystectomy. Liver, spleen, pancreas, adrenal glands are unremarkable. Symmetric renal enhancement. No hydronephrosis. Right kidney cyst. Normal appendix. No bowel obstruction. Sigmoid diverticulosis. Pelvic organs are in unremarkable. No acute osseous findings. ECG Data EKG #1: Attestation: I personally reviewed and interpreted this ECG as follows: ECG completion date: 10/11/24 ECG completion time: 22:57 Prior ECG tracings: not available for review (No prior for comparison) Interpretation: Sinus tachycardia at a rate of 120 beats per minute. MI interval 113. QRS 84. QT/QTC 336/476. Good R-wave progression across the precordial leads. No T-wave inversions. Possible ST depression in V4 and V5 although significant baseline artifact limits full interpretation. Possible right ventricular conduction delay with the RSR pattern in V1 V2 and V3. EKG #2: Attestation: I personally reviewed and interpreted this ECG as follows: ECG completion date: 10/12/24 ECG completion time: 02:35 Interpretation: Sinus tachycardia at a rate of 102 beats per minute. MI interval 101. QRS 85. QT/QTC 340/399. No T-wave inversions. Possible right ventricular conduction delay based on the appearance of RSR in V1 and V2. Discharge Plan Discharge Clinical Impression: Leukocytosis, Chest pain, Angina pectoris, At risk for pill esophagitis Patient Disposition: Still a Patient Condition: Stable
[2024-10-11] MEDS: HYDROmorphone HCL INJ (*CRX) 1 MG/ML SYR 0.5 MG IV PUSH (23:40)
[2024-10-12] VITALS (16 sets, daily range): BP systolic 96–123; BP diastolic 54–78; PULSE 61–130; RESP 13–20; TEMP 36.4–37; O2SAT 94–100; BMI 21.7; BMI 22.4
--- NOTE | 2024-10-12 01:19 | ECG_ITS ---
Test Date: 2024-10-12 02:35:19 Measurements Intervals [place] Rate: 102 P: 37 AK: 101 QRS: -3 QRSD: 85 T: 59 QT: 340 QTc: 443 Interpretive Statements SINUS TACHYCARDIA WITH SHORT AK INTERVAL POSSIBLE RIGHT VENTRICULAR CONDUCTION DELAY DELAYED PRECORDIAL R/S TRANSITION MINIMAL Q WAVES- HIGH LATERAL LEADS BASELINE ARTIFACT- I, II, AVR BORDERLINE ECG Compared to ECG 10/11/2024 22:57:15 HEART RATE HAS DECREASED Electronically Signed On 10-12-2024 07:16:12 CDT by Pasha Gomez D.O.
[2024-10-12 02:45] LABS: Troponin I < 0.012 ng/mL (0.000-0.034)
[2024-10-12] MEDS: NITROGLYCERIN SL 0.4 MG TABLET SUBLINGUAL (03:08)
[2024-10-12] MEDS: ONDANSETRON INJ 4 MG/2 ML VIAL IV PUSH (03:09)
[2024-10-12] MEDS: GLUCAGON FOR INJ 1 MG VIAL IM (03:11)
[2024-10-12] MEDS: WATER, STERILE FOR INJECTION 10 ML VIAL XX (03:21)
[2024-10-12] MEDS: ALPRAZolam (*CRX) 0.5 MG TABLET 1 MG PO (05:31)
--- NOTE | 2024-10-12 06:08 | ADMGEN ---
This patient, Karol Bautista, was admitted to IMU Room 200-01 on 10/12/24 at 0605. Patient/family oriented to hospital policies and general routines including ID bracelet, bed and alarms, visiting hours, pain management, procedures, bathroom and other care routines, personal items, smoking policy, room service/diet, and visiting hours. Information on how to activate the Rapid Response Team has been discussed. Patient/Family are encouraged to report perceived risks to care and to ask questions if they do not understand what they are told or what they should do.
[2024-10-12 07:48] LABS: Troponin I < 0.012 ng/mL (0.000-0.034)
--- NOTE | 2024-10-12 08:13 | PM.IMHP ---
H&P: HPI History of Present Illness Date/Time: 10/12/24 08:13 Chief Complaint: Chest pain, epigastric pain Narrative: Patient with history of anxiety hyperlipidemia, hypothyroidism, COPD, esophageal spasm presented with epigastric pain. Patient notes she was doing fine until last night when she took her medication. She felt medication is talking her stomach/GI. As she felt bending/shooting pain in epigastric area. Pain was severe radiating to back. Pain was getting worse with movement and taking deep breath. She took Xanax but it did not help. Denies any fever chills, chest pain, shortness the respite last bowel movement was yesterday was normal. Patient notes she has similar problem in 2002 and GI cocktail helped. she was diagnosed with esophageal spasm at that time vital signs showed heart rate 120, blood pressure 127/81. Lab test WBC 16.4, hemoglobin 13.5, sodium 140, potassium 3.6. Troponin negative. Lipase 106. CTA chest abdomen negative for acute abnormality including PE. EKG showed sinus tachycardia. Cardiology was consulted Patient was seen and examined at bedside. cardiology team evaluated and does not need cardiac work up. Patient requested GI cocktail but did not help.. Started on pain medication. Clear liquid diet. GI team was consulted.. Hold Plavix for now. Review of Systems Review of Systems: All systems reviewed & are unremarkable except as noted in HPI and below [facility] Past Medical History Medical History URI, acute Screening mammogram, encounter for Pruritic rash Internal hemorrhoids Dietary counseling and surveillance (09/21/16) Colon cancer screening Bilateral lower extremity edema High cholesterol Asthma Surgical History Surgical History History of hysterectomy, 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 History of dilation and curettage (07/14/03) hscope d&c/endometrial ablation--menometrorrhagia History of endometrial ablation (07/14/03) hscope d&c/endometrial ablation--menometrorrhagia History of partial thyroidectomy (~2003) right thyroidectomy History of cholecystectomy (~1999) History of 1990,1996 Family History Family History (Updated 10/12/24 @ 08:14 by Sommer Osorio RN) Mother Dementia Chronic renal failure Hypertension Father Cerebrovascular accident A-fib Social History Social History Smoking status: Never smoker Second hand tobacco smoke exposure: Yes Alcohol intake: never Substance use: never Substance use type: does not use Do You Feel Safe in your Home?: Yes Lack of Transportation: No Lack of Food: Never True Current Housing: I Have Housing Concerned About Future Housing: No Difficulty Paying Gas/Electric Bills: No Difficulty Paying for Meds: No Currently Unemployed: No Education: Bachelor's Degree Difficulty w/ Childcare or Family Care: YES Spiritual care concerns: No Meds Home Medications and Allergies Home Medications ?Medication ?Instructions ?Recorded ?Confirmed ?Type estradiol 0.5 mg tablet 0.5 mg PO HS 06/20/19 10/12/24 History vehicle base no.24 (bulk) See Rx Instructions miscellaneous 06/20/19 10/12/24 History (Versabase Cream) .COMPLEX levothyroxine 88 mcg tablet 88 mcg PO DAILY 06/24/19 10/12/24 History (Synthroid) progesterone micronized 200 mg 200 mg PO QPM 06/24/19 10/12/24 History capsule albuterol sulfate 90 mcg/actuation 2 inh inhalation Q4-6H PRN 03/22/23 10/12/24 Rx aerosol inhaler (Ventolin HFA) shortness of breath or wheezing #18 grams estradiol 0.01% (0.1 mg/gram) 1 g vaginal 2XW 07/17/23 10/12/24 History vaginal cream (Estrace) semaglutide (weight loss) 2.4 2.4 mg subcut WEEKLY 07/17/23 10/12/24 History mg/0.75 mL subcutaneous pen injector mometasone-formoterol HFA 200 See Rx Instructions .Route 01/01/24 10/12/24 Rx mcg-5 mcg/actuation aerosol .COMPLEX #13 grams inhaler (Dulera) metoprolol succinate 25 mg 12.5 mg PO HS 01/17/24 10/12/24 History tablet,extended release 24 hr rosuvastatin 20 mg tablet 20 mg PO HS 01/17/24 10/12/24 History clopidogrel 75 mg tablet 75 mg PO DAILY 08/05/24 10/12/24 History Balance of Nature vitamins See Rx Instructions .Route .COMPLEX 10/12/24 10/12/24 History fruit/vegetable Ecosleep See Rx Instructions .Route .COMPLEX 10/12/24 10/12/24 History Eye promise OTC See Rx Instructions .Route .COMPLEX 10/12/24 10/12/24 History alprazolam 0.25 mg tablet 0.125 mg PO HS PRN anxiety 10/12/24 10/12/24 History famotidine 20 mg tablet (Pepcid) 20 mg PO DAILY 10/12/24 10/12/24 History liothyronine 5 mcg tablet 15 mcg PO QAM 10/12/24 10/12/24 History loratadine 10 mg tablet 10 mg PO DAILY 10/12/24 10/12/24 History magnesium glycinate 400 mg PO HS for sleep 10/12/24 10/12/24 History montelukast 10 mg tablet 10 mg PO QPM 10/12/24 10/12/24 History ondansetron 4 mg disintegrating 4 mg translingual Q8H PRN nausea 10/12/24 10/12/24 History tablet and vomiting prasterone (dhea) 25 mg capsule 25 mg PO QAM 10/12/24 10/12/24 History pro-biotic See Rx Instructions .Route .COMPLEX 10/12/24 10/12/24 History Allergies Allergy/AdvReac Type Severity Reaction Status Date / Time codeine AdvReac Mild Headache Verified 10/12/24 07:02 prochlorperazine AdvReac Mild Headache Verified 10/12/24 07:02 morphine AdvReac Headache Verified 10/12/24 07:02 Vital Signs Vital Signs - 24 hr 10/11/24 22:51 10/11/24 22:57 10/11/24 22:58 Temperature 98.2 F Pulse Rate 120 H 118 H Respiratory Rate 20 22 H Blood Pressure 127/81 Pulse Oximetry 100 Oxygen Delivery Room Air 10/12/24 00:17 10/12/24 02:24 10/12/24 05:38 Temperature Pulse Rate 107 H 102 H 107 H Respiratory Rate 13 15 14 Blood Pressure 123/70 96/64 L 105/78 Pulse Oximetry 100 100 100 Oxygen Delivery 10/12/24 06:05 10/12/24 06:10 10/12/24 06:20 Temperature 98.1 F Pulse Rate 122 H 122 H 107 H Respiratory Rate 18 18 14 Blood Pressure 106/57 L 105/78 Pulse Oximetry 96 96 100 Oxygen Delivery Room Air 10/12/24 08:00 Temperature 97.8 F Pulse Rate 119 H Respiratory Rate 18 Blood Pressure 98/60 L Pulse Oximetry 98 Oxygen Delivery Exam Narrative: GENERAL: Well-appearing, well-nourished, and in no acute distress. HEAD: Normocephalic, atraumatic. EYES: Non injected, non icteric ENT: Nares clear, no rhinorrhea or epistaxis. NECK: Supple. CHEST: Speaking in full sentences. No respiratory distress. HEART: Regular rate and rhythm. . ABDOMEN: Soft, nondistended. Mild epigastric pain EXTREMITIES: Normal range of motion. No lower extremity edema. SKIN: Warm, dry, no rash. NEURO: No focal deficits. Alert and oriented x3. PSYCH: Normal mood and affect. H&P: Results Labs Labs: Short CBC 10/11/24 Range/Units 23:00 WBC 16.4 H (4.5-10.0) K/mm3 Hgb 13.5 (12.0-15.0) g/dL Hct 41.4 (37.0-47.0) % Plt Count 284 (150-375) k/mm3 BMP 10/11/24 23:00 Sodium 140 Potassium 3.6 Chloride 103 Carbon Dioxide 24 BUN 24 H Creatinine 0.73 Glucose 124 H Calcium 9.0 Cardiac Enzymes 10/11/24 10/12/24 10/12/24 Range/Units 23:00 02:19 07:12 Troponin I < 0.012 < 0.012 < 0.012 (0.000-0.034) ng/mL Liver Function 10/11/24 Range/Units 23:00 Total Bilirubin 0.4 (0.2-1.3) mg/dL AST 24 (14-36) U/L ALT 19 (6-35) U/L Alkaline Phosphatase 65 (38-126) U/L Albumin 4.3 (3.5-5.1) g/dL Assessment and Plan Assessment and plan (1) Leukocytosis: Code(s): D72.829 - Elevated white blood cell count, unspecified Status: Acute Assessment and Plan: Unclear etiology Possible reactive Patient denies any fever chills, respiratory/ urinary symptoms, diarrhea Content monitor (2) Abdominal pain: Code(s): R10.9 - Unspecified abdominal pain Status: Acute Assessment and Plan: With history of esophageal spasm, / semaglutide side effect Continued pain medication GI coctail did not help consult GI (3) Overweight (BMI 25.0-29.9): Code(s): E66.3 - Overweight Status: Acute Assessment and Plan: Lifestyle modification (4) Hypothyroidism: Code(s): E03.9 - Hypothyroidism, unspecified Status: Acute Assessment and Plan: [employer] meds
--- NOTE | 2024-10-12 09:41 | PM.CNCAR ---
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 There is no need to revisit in ischemic workup at this point. She also had a CTA chest during this admission which does not show any evidence of aortic dissection which course would enter the differential diagnosis given her symptoms. It is clear that she has an inflammatory chest diaz source of pain or possibly an esophageal source but there is no reason that a ischemic workup needs to be repeated again. Matias Corona MD MERGED WITH [facility] History of Present Illness History of Present Illness Consult date/time: 10/12/24 09:41 Reason For Visit: chest pain, c/f angina; HEART score 5 Narrative: This is a 69-year-old woman I am seeing at the request of the hospitalist this morning because of chest pain. She is unknown to me prior to this consultation. The patient has no history of significant coronary artery disease and came to the hospital last evening because of significant chest pain she has been bothered by episodes of significant chest pain for about 4-5 months and has been under the care/evaluation of 1 of the cardiologists in [facility], Dr. Terrie Padilla. Patient states that yesterday evening she began to have significant pain after she took her evening medications she thought maybe 1 of her pills was stuck in her esophagus and she experience significant pain in the epigastrium to low substernal area. The pain had some radiation off and on into the scapular region and she then became concerned and eventually called 911 with her and she was taken to the emergency room here for evaluation. Her emergency room evaluation did not show any evidence of acute coronary syndrome. She was admitted to the hospital for further evaluation. She states that she still has this pain and it is significantly aggravated by inspiration. She for most of her life is very active woman especially at her age she participates in significant at leading activities and weight lifting for fitness and does not have a history of exertional anginal-type chest pain. 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 She describes having angiographically modest coronary artery disease without any obstructive lesions being identified. She was told of a 50-60% stenosis in the right coronary artery. Obviously we do not have the ability to review those angiograms here at [facility] and her physician that conducted this evaluation is not a member of my practice so I do not have access to the chart in the office. Having said all that her troponin levels have been remaining normal x3 sets and in this setting I am seeing her in consultation this morning. Does have a history of asthma and follows with pulmonology here as well as hypertension and follows with primary care here at [facility]. Review of Systems Constitutional: Constitutional: Reports no additional constitutional complaints Eyes: Eyes: Reports no additional eye complaints ENT: Reports system reviewed and no additional complaints, except as documented Cardiovascular: Cardiovascular: Reports as per HPI and Reports chest pain Respiratory: Respiratory: Reports no additional respiratory complaints Gastrointestinal: Gastrointestinal: Reports no additional gastrointestinal complaints Genitourinary: Genitourinary: Reports no additional female genitourinary complaints Musculoskeletal: Musculoskeletal: Reports no additional musculoskeletal complaints Integumentary/Breasts: Skin/Breast: Reports system reviewed and no additional complaints, except as docu Neurologic: Comments: Alert and oriented x3 Endocrine: Endocrine: Reports no additional endocrine complaints Hematologic/Lymphatic: Hematologic/Lymphatic: Reports no additional hematologic/lymphatic complaints Allergic/Immunologic: Allergic/Immunologic: Reports no additional allergic/immunologic complaints [facility] Past Medical History Medical History URI, acute Screening mammogram, encounter for Pruritic rash Internal hemorrhoids Dietary counseling and surveillance (09/21/16) Colon cancer screening Bilateral lower extremity edema High cholesterol Asthma Surgical History Surgical History History of hysterectomy, 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 History of dilation and curettage (07/14/03) hscope d&c/endometrial ablation--menometrorrhagia History of endometrial ablation (07/14/03) hscope d&c/endometrial ablation--menometrorrhagia History of partial thyroidectomy (~2003) right thyroidectomy History of cholecystectomy (~1999) History of Family History Family History (Updated 10/12/24 @ 08:14 by Sommer Osorio RN) Mother Dementia Chronic renal failure Hypertension Father Cerebrovascular accident A-fib Social History Social History Smoking status: Never smoker Second hand tobacco smoke exposure: Yes Alcohol intake: never Substance use: never Substance use type: does not use Do You Feel Safe in your Home?: Yes Lack of Transportation: No Lack of Food: Never True Current Housing: I Have Housing Concerned About Future Housing: No Difficulty Paying Gas/Electric Bills: No Difficulty Paying for Meds: No Currently Unemployed: No Education: Bachelor's Degree Difficulty w/ Childcare or Family Care: YES Spiritual care concerns: No Meds Home Medications and Allergies Home Medications ?Medication ?Instructions ?Recorded ?Confirmed ?Type estradiol 0.5 mg tablet 0.5 mg PO HS 06/20/19 10/12/24 History vehicle base no.24 (bulk) See Rx Instructions miscellaneous 06/20/19 10/12/24 History (Versabase Cream) .COMPLEX levothyroxine 88 mcg tablet 88 mcg PO DAILY 06/24/19 10/12/24 History (Synthroid) progesterone micronized 200 mg 200 mg PO QPM 06/24/19 10/12/24 History capsule albuterol sulfate 90 mcg/actuation 2 inh inhalation Q4-6H PRN 03/22/23 10/12/24 Rx aerosol inhaler (Ventolin HFA) shortness of breath or wheezing #18 grams estradiol 0.01% (0.1 mg/gram) 1 g vaginal 2XW 07/17/23 10/12/24 History vaginal cream (Estrace) semaglutide (weight loss) 2.4 2.4 mg subcut WEEKLY 07/17/23 10/12/24 History mg/0.75 mL subcutaneous pen injector mometasone-formoterol HFA 200 See Rx Instructions .Route 01/01/24 10/12/24 Rx mcg-5 mcg/actuation aerosol .COMPLEX #13 grams inhaler (Dulera) metoprolol succinate 25 mg 12.5 mg PO HS 01/17/24 10/12/24 History tablet,extended release 24 hr rosuvastatin 20 mg tablet 20 mg PO HS 01/17/24 10/12/24 History clopidogrel 75 mg tablet 75 mg PO DAILY 08/05/24 10/12/24 History Balance of Nature vitamins See Rx Instructions .Route .COMPLEX 10/12/24 10/12/24 History fruit/vegetable Ecosleep See Rx Instructions .Route .COMPLEX 10/12/24 10/12/24 History Eye promise OTC See Rx Instructions .Route .COMPLEX 10/12/24 10/12/24 History alprazolam 0.25 mg tablet 0.125 mg PO HS PRN anxiety 10/12/24 10/12/24 History famotidine 20 mg tablet (Pepcid) 20 mg PO DAILY 10/12/24 10/12/24 History liothyronine 5 mcg tablet 15 mcg PO QAM 10/12/24 10/12/24 History loratadine 10 mg tablet 10 mg PO DAILY 10/12/24 10/12/24 History magnesium glycinate 400 mg PO HS for sleep 10/12/24 10/12/24 History montelukast 10 mg tablet 10 mg PO QPM 10/12/24 10/12/24 History ondansetron 4 mg disintegrating 4 mg translingual Q8H PRN nausea 10/12/24 10/12/24 History tablet and vomiting prasterone (dhea) 25 mg capsule 25 mg PO QAM 10/12/24 10/12/24 History pro-biotic See Rx Instructions .Route .COMPLEX 10/12/24 10/12/24 History Allergies Allergy/AdvReac Type Severity Reaction Status Date / Time codeine AdvReac Mild Headache Verified 10/12/24 07:02 prochlorperazine AdvReac Mild Headache Verified 10/12/24 07:02 morphine AdvReac Headache Verified 10/12/24 07:02 Vital Signs Vital Signs - 24 hr 10/11/24 22:51 10/11/24 22:57 10/11/24 22:58 Temperature 36.8 C Pulse Rate 120 H 118 H Respiratory Rate 20 22 H Blood Pressure 127/81 Pulse Oximetry 100 Oxygen Delivery Room Air 10/12/24 00:17 10/12/24 02:24 10/12/24 05:38 Temperature Pulse Rate 107 H 102 H 107 H Respiratory Rate 13 15 14 Blood Pressure 123/70 96/64 L 105/78 Pulse Oximetry 100 100 100 Oxygen Delivery 10/12/24 06:05 10/12/24 06:07 10/12/24 06:10 Temperature 36.7 C Pulse Rate 122 H 121 H 122 H Respiratory Rate 18 18 Blood Pressure 106/57 L Pulse Oximetry 96 96 Oxygen Delivery Room Air 10/12/24 06:20 10/12/24 08:00 Temperature 36.6 C Pulse Rate 107 H 119 H Respiratory Rate 14 18 Blood Pressure 105/78 98/60 L Pulse Oximetry 100 98 Oxygen Delivery Exam Const: General: comfortable and no acute distress Other: Fit white female appearing her stated age comfortable cooperative no distress of any she still has sharp lower substernal chest pain when she takes a deep breath HENMT: Mouth: Yes moist mucous membranes Eyes: Sclera: sclerae normal Pupils: Equal, round and reactive pupils present Neck: Neck: supple and no JVD Resp: Effort & Inspection: normal respiratory effort Auscultation: clear to auscultation bilaterally Cardio: Rate: regular rate Rhythm: regular rhythm GI: GI Palp: Yes Soft to palpation Auscultation: normal bowel sounds Skin: General skin exam: normal color Neuro: Other: Alert and oriented x3 Extrem: General: normal to inspection Results Labs and Meds 10/11/24 23:00 10/11/24 23:00 Lab results: Cardiac Enzymes 10/11/24 10/12/24 10/12/24 Range/Units 23:00 02:19 07:12 AST 24 (14-36) U/L Troponin I < 0.012 < 0.012 < 0.012 (0.000-0.034) ng/mL Coagulation 10/11/24 Range/Units 23:00 PT 13.8 (11.1-14.7) Seconds APTT 26.7 (22.3-36.8) Seconds CBC 10/11/24 Range/Units 23:00 WBC 16.4 H (4.5-10.0) K/mm3 RBC 4.34 (4.2-5.4) M/mm3 Hgb 13.5 (12.0-15.0) g/dL Hct 41.4 (37.0-47.0) % Plt Count 284 (150-375) k/mm3 Lymph # (Auto) 3.48 H (0.9-3.2) K/mm3 Ada # (Auto) 0.8 H (0.1-0.6) K/mm3 Eos # (Auto) 0.1 (0-0.3) K/mm3 Baso # (Auto) 0.1 (0.0-0.1) K/mm3 Comprehensive Metabolic Panel 10/11/24 Range/Units 23:00 Sodium 140 (137-145) mmol/L Potassium 3.6 (3.4-5.0) mmol/L Chloride 103 (98-107) mmol/L Carbon Dioxide 24 (22-30) mmol/L BUN 24 H (7-17) mg/dL Creatinine 0.73 (0.7-1.0) mg/dL Glucose 124 H (65-110) mg/dL Calcium 9.0 (8.4-10.2) mg/dL AST 24 (14-36) U/L ALT 19 (6-35) U/L Alkaline Phosphatase 65 (38-126) U/L Total Protein 8.0 (6.3-8.2) g/dL Albumin 4.3 (3.5-5.1) g/dL Patient Weight 10/12/24 23:59 Weight 53.9 kg
[2024-10-12] MEDS: LIOTHYRONINE SODIUM 5 MCG TABLET 15 MCG PO (10:42)
[2024-10-12] MEDS: CLOPIDOGREL BISULFATE 75 MG TABLET PO (10:43)
[2024-10-12] MEDS: BELLADONNA ALK/PHENOB ELIX 10 ML, MAG HYDROX/ALUMINUM HYD/SIMETH 30 ML, LIDOCAINE 2% VI... PO (10:44)
[2024-10-12] MEDS: HYDROmorphone HCL INJ (*CRX) 1 MG/ML SYR 0.5 MG IV PUSH ×2 (15:23→20:26)
[2024-10-12] MEDS: SODIUM CHLORIDE 0.9% IV 1,000 ML 100 ML IV CONT (15:24)
--- NOTE | 2024-10-12 17:21 | PC.NURSE ---
This patient, Karol Bautista, was transferred to [ [id number] ] on 10/12/24 at 1721. Personal belongings sent with patient. Report given to [ Shantel ]. Appropriate documentation sent with patient.
[2024-10-12] MEDS: DICYCLOMINE HCL 10 MG CAPSULE 20 MG PO ×2 (17:42→20:25)
[2024-10-12] MEDS: MONTELUKAST SODIUM 10 MG TABLET PO (17:42)
[2024-10-12 18:18] LABS: Glucose Point of Care 113 mg/dl (65-105)
[2024-10-12] MEDS: METOPROLOL SUCCINATE EXT REL 12.5 MG TABCR PO (20:25)
[2024-10-12] MEDS: ROSUVASTATIN 20 MG TABLET PO (20:25)
[2024-10-12] MEDS: FLUTICASONE/SALMETEROL 230-21 MCG INHALER 1 PUFF 2 PUFF INHALATION (20:50)
[2024-10-13 00:50] LABS: Glucose Point of Care 124 mg/dl (65-105)
[2024-10-13] MEDS: SODIUM CHLORIDE 0.9% IV 1,000 ML 100 ML IV CONT ×2 (01:23→13:10)
[2024-10-13 04:20] VITALS: BP 92/53; PULSE 101; RESP 16; TEMP 36.5; O2SAT 95
[2024-10-13 05:29] LABS: Glucose Point of Care 92 mg/dl (65-105)
[2024-10-13 05:53] LABS: Hematocrit 36.7 % (37.0-47.0); Hemoglobin 11.6 g/dL (12.0-15.0); Mean Corpuscular HGB Conc 31.6 g/dl (32-36); Mean Corpuscular Hemoglobin 31.5 pg (26-34); Mean Corpuscular Volume 99.7 fl (80-100); Mean Platelet Volume 9.8 fl (7.4-10.4); Platelet Count Result 221 k/mm3 (150-375); Red Blood Count 3.68 M/mm3 (4.2-5.4); Red Cell Distribution Width 12.8 % (11.5-14.5); White Blood Count 8.9 K/mm3 (4.5-10.0)
[2024-10-13 06:10] LABS: Alanine Aminotransferase 21 U/L (6-35); Albumin Level 3.4 g/dL (3.5-5.1); Alkaline Phosphatase 58 U/L (38-126); Anion Gap 8 mmol/L (4-12); Aspartate Amino Transferase 30 U/L (14-36); Bilirubin,Total 0.8 mg/dL (0.2-1.3); Blood Urea Nitrogen 18 mg/dL (7-17); Carbon Dioxide 22 mmol/L (22-30); Chloride 107 mmol/L (98-107); Estimated CRCL calculation 42 ml/min; Estimated Glomerular Filt Rate > 60; Glucose 88 mg/dL (65-110); Potassium 4.3 mmol/L (3.4-5.0); Sodium 137 mmol/L (137-145)
[2024-10-13] MEDS: FLUTICASONE/SALMETEROL 230-21 MCG INHALER 1 PUFF 2 PUFF INHALATION (08:23)
[2024-10-13] MEDS: DICYCLOMINE HCL 10 MG CAPSULE 20 MG PO ×2 (09:16→13:09)
[2024-10-13] MEDS: LORATADINE 10 MG TABLET PO (09:17)
[2024-10-13] MEDS: LIOTHYRONINE SODIUM 5 MCG TABLET 15 MCG PO (09:17)
[2024-10-13] MEDS: FAMOTIDINE 20 MG TABLET PO (09:18)
[2024-10-13 11:45] LABS: Glucose Point of Care 77 mg/dl (65-105)
--- NOTE | 2024-10-13 13:07 | P.CONGI_ITS ---
Assessment and Plan Assessment and plan (1) Odynophagia: Code(s): R13.10 - Dysphagia, unspecified Status: Acute Assessment and Plan: most likely she had pill esophagitis currently doing better and eating she can go home with protonix daily my office will set up egd in few more weeks (2) Non-cardiac chest pain: Code(s): R07.89 - Other chest pain Status: Acute Assessment and Plan: cardiology evaluated patient no need of further work up (3) Leukocytosis: Code(s): D72.829 - Elevated white blood cell count, unspecified Status: Acute Assessment and Plan: could be reactive by primary (4) Unspecified asthma, uncomplicated: Code(s): J45.909 - Unspecified asthma, uncomplicated Status: Acute (5) CAD (coronary artery disease): Code(s): I25.10 - Atherosclerotic heart disease of [place] coronary artery without angina pectoris Status: Acute (6) GERD (gastroesophageal reflux disease): Code(s): K21.9 - Gastro-esophageal reflux disease without esophagitis Status: Acute Assessment and Plan: on pepcid will give ppi ? pill esophagitis GI Consult Note Consult date/time: 10/13/24 13:07 Reason for consult: odynophagia HPI: Karol Bautista is a 69 year old female h/o cad on plavix, gerd on pepcid, asthma. Here with severe pain last night soon after she took a pill with sensation that got stuck in upper chest, pain was severe and heaviness with radiation bilaterally. EMS administered aspirin, initially worse pain after swallowing. History of a cardiac cath June. She is feeling much better right now, able to swallow, no nausea, only sensation of soreness now in upper chest. Evaluated by cardiology and no need of further work up, never had EGD. She had colonoscopy many years ago and currently only doing cologuard. Review of Systems 2 Constitutional: Constitutional: Denies chills Eyes: Eyes: Denies blurry vision ENT: Reports Normal hearing present Cardiovascular: Cardiovascular: Reports chest pain Respiratory: Respiratory: Denies cough Gastrointestinal: Gastrointestinal: Reports abdominal pain Genitourinary: Genitourinary: Denies pelvic pain Musculoskeletal: Musculoskeletal: Denies neck pain Integumentary/Breasts: Skin/Breast: Denies rash Neurologic: Denies Abnormal speech present Psychiatric: Psychiatric: Denies behavioral changes [facility] Past Medical History Medical History (Updated 10/13/24 @ 13:11 by Edd Espitia MD) GERD (gastroesophageal reflux disease) CAD (coronary artery disease) Non-cardiac chest pain Odynophagia Leaky heart valve URI, acute Screening mammogram, encounter for Pruritic rash Internal hemorrhoids Dietary counseling and surveillance (09/21/16) Colon cancer screening Bilateral lower extremity edema High cholesterol Asthma Surgical History Surgical History History of cardiac cath Jun 2024 History of hysterectomy, 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 History of dilation and curettage (07/14/03) hscope d&c/endometrial ablation--menometrorrhagia History of endometrial ablation (07/14/03) hscope d&c/endometrial ablation--menometrorrhagia History of partial thyroidectomy (~2003) right thyroidectomy History of cholecystectomy (~1999) History of 1990,1996 Family History Family History (Updated 10/12/24 @ 08:14 by Sommer Osorio RN) Mother Dementia Chronic renal failure Hypertension Father Cerebrovascular accident A-fib Social History Social History Smoking status: Never smoker Second hand tobacco smoke exposure: Yes Alcohol intake: never Substance use: never Substance use type: does not use Do You Feel Safe in your Home?: Yes Lack of Transportation: No Lack of Food: Never True Current Housing: I Have Housing Concerned About Future Housing: No Difficulty Paying Gas/Electric Bills: No Difficulty Paying for Meds: No Currently Unemployed: No Education: Bachelor's Degree Difficulty w/ Childcare or Family Care: YES Living arrangements: with family Spiritual care concerns: No Meds Home Medications and Allergies Home Medications ?Medication ?Instructions ?Recorded ?Confirmed ?Type estradiol 0.5 mg tablet 0.5 mg PO HS 06/20/19 10/12/24 History vehicle base no.24 (bulk) See Rx Instructions miscellaneous 06/20/19 10/12/24 History (Versabase Cream) .COMPLEX levothyroxine 88 mcg tablet 88 mcg PO DAILY 06/24/19 10/12/24 History (Synthroid) progesterone micronized 200 mg 200 mg PO QPM 06/24/19 10/12/24 History capsule albuterol sulfate 90 mcg/actuation 2 inh inhalation Q4-6H PRN 03/22/23 10/12/24 Rx aerosol inhaler (Ventolin HFA) shortness of breath or wheezing #18 grams estradiol 0.01% (0.1 mg/gram) 1 g vaginal 2XW 07/17/23 10/12/24 History vaginal cream (Estrace) semaglutide (weight loss) 2.4 2.4 mg subcut WEEKLY 07/17/23 10/12/24 History mg/0.75 mL subcutaneous pen injector mometasone-formoterol HFA 200 See Rx Instructions .Route 01/01/24 10/12/24 Rx mcg-5 mcg/actuation aerosol .COMPLEX #13 grams inhaler (Dulera) metoprolol succinate 25 mg 12.5 mg PO HS 01/17/24 10/12/24 History tablet,extended release 24 hr rosuvastatin 20 mg tablet 20 mg PO HS 01/17/24 10/12/24 History clopidogrel 75 mg tablet 75 mg PO DAILY 08/05/24 10/12/24 History Balance of Nature vitamins See Rx Instructions .Route .COMPLEX 10/12/24 10/12/24 History fruit/vegetable Ecosleep See Rx Instructions .Route .COMPLEX 10/12/24 10/12/24 History Eye promise OTC See Rx Instructions .Route .COMPLEX 10/12/24 10/12/24 History alprazolam 0.25 mg tablet 0.125 mg PO HS PRN anxiety 10/12/24 10/12/24 History famotidine 20 mg tablet (Pepcid) 20 mg PO DAILY 10/12/24 10/12/24 History liothyronine 5 mcg tablet 15 mcg PO QAM 10/12/24 10/12/24 History loratadine 10 mg tablet 10 mg PO DAILY 10/12/24 10/12/24 History magnesium glycinate 400 mg PO HS for sleep 10/12/24 10/12/24 History montelukast 10 mg tablet 10 mg PO QPM 10/12/24 10/12/24 History ondansetron 4 mg disintegrating 4 mg translingual Q8H PRN nausea 10/12/24 10/12/24 History tablet and vomiting prasterone (dhea) 25 mg capsule 25 mg PO QAM 10/12/24 10/12/24 History pro-biotic See Rx Instructions .Route .COMPLEX 10/12/24 10/12/24 History Allergies Allergy/AdvReac Type Severity Reaction Status Date / Time codeine AdvReac Mild Headache Verified 10/12/24 07:02 prochlorperazine AdvReac Mild Headache Verified 10/12/24 07:02 morphine AdvReac Headache Verified 10/12/24 07:02 Vital Signs Vital Signs - 24 hr 10/12/24 15:58 10/12/24 20:00 10/12/24 20:20 Temperature 98.6 F 97.5 F L Pulse Rate 130 H 61 61 Respiratory Rate 18 20 20 Blood Pressure 97/54 L 98/54 L Pulse Oximetry 96 96 95 Oxygen Delivery Room Air 10/12/24 21:02 10/13/24 04:20 10/13/24 08:00 Temperature 97.7 F Pulse Rate 101 H Respiratory Rate 16 Blood Pressure 92/53 L Pulse Oximetry 96 95 Oxygen Delivery Room Air Room Air Exam 2 Const: General: comfortable and no acute distress HENMT: Face/Nose/Sinus: Normal nares present Eyes: General: appearance normal, both eyes and all related structures Neck: Neck: supple Resp: Auscultation: clear to auscultation bilaterally Cardio: Rate: regular rate Rhythm: regular rhythm GI: Inspection: non-distended GI Palp: Yes Soft to palpation and No Tenderness to palpation present (GI) Auscultation: normal bowel sounds Skin: General skin exam: normal color Neuro: General: gait normal Speech: normal speech Extrem: General: normal to inspection Psych: Mental Status: mental status grossly normal Results Labs 10/13/24 05:20 10/13/24 05:20 Labs: Short CBC 10/13/24 Range/Units 05:20 WBC 8.9 (4.5-10.0) K/mm3 Hgb 11.6 L (12.0-15.0) g/dL Hct 36.7 L (37.0-47.0) % Plt Count 221 (150-375) k/mm3 BMP 10/13/24 05:20 Sodium 137 Potassium 4.3 Chloride 107 Carbon Dioxide 22 BUN 18 H Creatinine 0.80 Glucose 88 Calcium 8.0 L Liver Function 10/13/24 Range/Units 05:20 Total Bilirubin 0.8 (0.2-1.3) mg/dL AST 30 (14-36) U/L ALT 21 (6-35) U/L Alkaline Phosphatase 58 (38-126) U/L Albumin 3.4 L (3.5-5.1) g/dL
--- NOTE | 2024-10-13 13:28 | PM.DS ---
DS: Admitting Diagnosis Discharge Date 10/13/24 Admitting Diagnosis Abd pain DS: Discharge Diagnosis Discharge Diagnosis (1) Leukocytosis: Code(s): D72.829 - Elevated white blood cell count, unspecified Status: Acute Assessment and Plan: Unclear etiology improved Possible reactive Patient denies any fever chills, respiratory/ urinary symptoms, diarrhea Content monitor (2) Abdominal pain: Code(s): R10.9 - Unspecified abdominal pain Status: Acute Assessment and Plan: possible pills esophagitis Continued pain medication GI coctail did not help GI on board: Plan for PPI daily and EGD few weeks Patient tolerated diet and pain improved (3) Overweight (BMI 25.0-29.9): Code(s): E66.3 - Overweight Status: Acute Assessment and Plan: Lifestyle modification (4) Hypothyroidism: Code(s): E03.9 - Hypothyroidism, unspecified Status: Acute Assessment and 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 Patient notes she was doing fine until last night when she took her medication. She felt medication is talking her stomach/GI. As she felt bending/shooting pain in epigastric area. Pain was severe radiating to back. Pain was getting worse with movement and taking deep breath. She took Xanax but it did not help. Denies any fever chills, chest pain, shortness the respite last bowel movement was yesterday was normal. Patient notes she has similar problem in 2002 and GI cocktail helped. she was diagnosed with esophageal spasm at that time vital signs showed heart rate 120, blood pressure 127/81. Lab test WBC 16.4, hemoglobin 13.5, sodium 140, potassium 3.6. Troponin negative. Lipase 106. CTA chest abdomen negative for acute abnormality including PE. EKG showed sinus tachycardia. Cardiology was consulted Patient was seen and examined at bedside. cardiology team evaluated and does not need cardiac work up. Patient requested GI cocktail but did not help.. Started on pain medication. Clear liquid diet. GI team was consulted.. 10/13/24 Patient received bentyl yesterday. Today patient feeling better. Pain improved. Tolerating diet. GI team concern for pill esophagitis. Recommended PPI daily. Patient can be discharged and follow up with GI in few weeks for endoscopy Status at Discharge Overall status at discharge: patient is back to baseline Time Spent with Patient Time attestation: Total time spent providing and/or coordinating discharge services: Time spent: Greater than 30 minutes Exam Narrative: GENERAL: Well-appearing, well-nourished, and in no acute distress. HEAD: Normocephalic, atraumatic. EYES: Non injected, non icteric ENT: Nares clear, no rhinorrhea or epistaxis. NECK: Supple. CHEST: Speaking in full sentences. No respiratory distress. HEART: Regular rate and rhythm. . ABDOMEN: Soft, nondistended. EXTREMITIES: Normal range of motion. No lower extremity edema. SKIN: Warm, dry, no rash. NEURO: No focal deficits. Alert and oriented x3. PSYCH: Normal mood and affect. DS: Data Data Completed and Pending Labs on day of discharge: Labs from last 24 hours 10/13/24 10/13/24 10/13/24 11:36 05:20 05:07 WBC 8.9 RBC 3.68 L Hgb 11.6 L Hct 36.7 L MCV 99.7 MCH 31.5 MCHC 31.6 L RDW 12.8 Plt Count 221 MPV 9.8 Sodium 137 Potassium 4.3 Chloride 107 Carbon Dioxide 22 Anion Gap 8 BUN 18 H Creatinine 0.80 Estim Creat Clear Calc 42 Estimated GFR > 60 Glucose 88 POC Capillary Glucose 77 92 Calcium 8.0 L Total Bilirubin 0.8 AST 30 ALT 21 Alkaline Phosphatase 58 Total Protein 6.0 L Albumin 3.4 L 10/13/24 10/12/24 00:07 17:46 WBC RBC Hgb Hct MCV MCH MCHC RDW Plt Count MPV Sodium Potassium Chloride Carbon Dioxide Anion Gap BUN Creatinine Estim Creat Clear Calc Estimated GFR Glucose POC Capillary Glucose 124 H 113 H Calcium Total Bilirubin AST ALT Alkaline Phosphatase Total Protein Albumin Discharge Plan Discharge Attending physician on discharge: Belle Gonzalez Consulting providers: Matias Corona; Edd Espitia Discharging Clinician: Belle Gonzalez Patient Disposition: Home, Self-Care Activity: as tolerated Diet: heart healthy Discharge Instructions: Follow-up with PCP in 1 week Follow-up with GI clinic in few weeks for endoscopy Continue with omeprazole daily Patient Instructions: Antibiotic Form, Angina (GEN) Patient Language: Scottish Stand Alone Forms: General Discharge Information Follow-up/Referrals: Young Byrd DO [Primary Care Provider] - Edd Espitia MD [Physician] - Discharge Medications: New omeprazole 40 mg capsule,delayed release(DR/EC) 40 mg PO DAILY Qty: 30 0RF acetaminophen 325 mg Tablet 650 mg PO Q4H PRN (Reason: Mild Pain (1-3) Or Fever) Qty: 30 0RF Continued semaglutide (weight loss) 2.4 mg/0.75 mL pen injector 2.4 mg subcut WEEKLY Patient Comments: Pt takes on Tuesdays. estradiol [Estrace] 0.01 % (0.1 mg/gram) cream 1 g vaginal 2XW Patient Comments: Pt takes on Sundays and . rosuvastatin 20 mg tablet 20 mg PO HS metoprolol succinate 25 mg tablet extended release 24 hr 12.5 mg PO HS levothyroxine [Synthroid] 88 mcg tablet 88 mcg PO DAILY Patient Comments: Pt unable to take the generic. Pt can only take synthroid only. Rx Instructions: Pt unable to take the generic. Pt can only take synthroid only. progesterone micronized 200 mg capsule 200 mg PO QPM clopidogrel 75 mg tablet 75 mg PO DAILY ondansetron 4 mg tablet,disintegrating 4 mg translingual Q8H PRN (Reason: nausea and vomiting) liothyronine 5 mcg tablet 15 mcg PO QAM alprazolam 0.25 mg tablet 0.125 mg PO HS PRN (Reason: anxiety) montelukast 10 mg tablet 10 mg PO QPM magnesium glycinate 100 mg magnesium capsule 400 mg PO HS prasterone (dhea) 25 mg capsule 25 mg PO QAM pro-biotic See Rx Instructions .ROUTE .COMPLEX Rx Instructions: 1 capsule PO QAM. Eye promise OTC tablet See Rx Instructions .ROUTE .COMPLEX Rx Instructions: 1 tablet PO QD. famotidine [Pepcid] 20 mg tablet 20 mg PO DAILY loratadine 10 mg tablet 10 mg PO DAILY Ecosleep tablet See Rx Instructions .ROUTE .COMPLEX Rx Instructions: 1 tablet PO QHS. Balance of Nature vitamins fruit/vegetable See Rx Instructions .ROUTE .COMPLEX Rx Instructions: Take 3 capsules PO Daily. Versabase Cream Cream See Rx Instructions miscellaneous .COMPLEX Rx Instructions: 07/13 twist cream applied topically to left inner arm QAM. as directed; estradiol 0.5 mg tablet 0.5 mg PO HS albuterol sulfate [Ventolin HFA] 90 mcg/actuation HFA aerosol inhaler 2 inh INHALATION Q4-6H PRN (Reason: shortness of breath or wheezing) Qty: 18 4RF Dulera 200-5 mcg/actuation HFA aerosol inhaler See Rx Instructions .ROUTE .COMPLEX Qty: 13 6RF Dose Instruction: INHALE 2 PUFFS BY MOUTH TWICE DAILY, RINSE AND SPIT Rx Instructions: INHALE 2 PUFFS BY MOUTH TWICE DAILY, RINSE AND SPIT Date of admission: 10/12/24 04:21 Primary Care Provider: Young Byrd Admitting Provider: Melani Bhandari Attending physician on admission: Belle Gonzalez Condition: Stable
== END 2024-10-13 15:05 | disposition home or self-care (01) ==
LOC: ANHED 10-12 04:21 → ANHIMU 10-12 05:31 → ANH3MEDSUR 10-12 17:34
PROVIDERS: Admitting Provider General Practice; Emergency Provider Student in an Organized Health Care Education/Training Program; PCP Internal Medicine; Visit Provider Internal Medicine
DX: R10.13 Epigastric pain (principal); R13.10 Dysphagia, unspecified; R07.89 Other chest pain; D72.829 Elevated white blood cell count, unspecified; E66.3 Overweight; Z68.22 Body mass index [BMI] 22.0-22.9, adult; E03.9 Hypothyroidism, unspecified; F41.9 Anxiety disorder, unspecified; K21.9 Gastro-esophageal reflux disease without esophagitis; J44.9 Chronic obstructive pulmonary disease, unspecified; I25.10 Atherosclerotic heart disease of native coronary artery without angina pectoris; I10 Essential (primary) hypertension; E11.9 Type 2 diabetes mellitus without complications; Z79.02 Long term (current) use of antithrombotics/antiplatelets; Z79.51 Long term (current) use of inhaled steroids; Z79.899 Other long term (current) drug therapy
CPT/HCPCS: 36415; 71045; 71275; 74174; 80053; 82948; 83690; 84484; 85025; 85027; 85610; 85730; 93005; 94640; 96361; 96372; 96374; 96375; 96376; 99285; A9270; G0378; J1171; J1610; J2405; J7030; Q9967

== ENCOUNTER 2025-01-21 00:22 | Day surgery (SDC) | payer MEDICARE, SELFPAY ==
[2025-01-13 08:29] VITALS: BMI 21.7
--- NOTE | 2025-01-13 08:48 | PC.NURSE ---
Spoke with patient regarding medication Plavix. Patient verbalizes understanding that the last dose is to be taken on 01/16/25 and the Endoscopist will instruct them when to restart after the procedure.
--- OUTSIDE RECORDS SUMMARY | 2025-01-21 00:24 | XMS_ITS | Continuity of Care Document ---
Author Organization [facility] Address [address] [place] [address] Phone Care Team Providers Care Outside Cutter Hand Name Role Phone Cartagena OD, Basim Unavailable Unavailable Advance Directives Directive Yes / No Effective Date File Name No Information Encounters Encounter Description Practice Location Reason(s) For Visit Diagnoses Date Provider Providers Copied on Encounter [facility], [address], [place], [place], [id number], [place] tel:[phone] [facility] No Information 1-200 0 Cartagena OD Basim. [address] , [address], [place], [address], [place]. tel:[phone] Family History Family Member Type Diagnosis Age [...]
--- OUTSIDE RECORDS SUMMARY | 2025-01-21 00:24 | XMS_ITS | Clinical Summary ---
Author Organization [facility] Address [address] [place] [address] Care Team Providers Care Measurement Psychologist Name Role Phone Irving Joy Fernanda BRUNNER Primary Care Provider [phone] Source Comments [facility],non-owned Affiliates and Associated Physician Practices is amultiple site organization consisting of ambulatory clinics and hospital sitesin [place], [place], [place] and [place]. This disclosure is being madepursuant to the Care Everywhere program and may not contain all information available regarding this patient. 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 Gender Identity Not on file Sexual Orientation [...] VACCINE (1 - 2023-2 5 season) 2024 DEPRESSION SCREENING 07/10/2024 INFLUENZA VACCINE (#1) 2025 Respiratory Syncytial Virus (RSV) Vaccine Pt: or [...] on patient's age to complete this topic Insurance [facility] Address[facility] [id number] [id number] Care Teams Measurement Psychologist Relationship Specialty Start Date End Date Irving Joy DO [address] [place], [place] [id number] PCP - General Internal Medicine 06/20/17
[2025-01-21 09:28] VITALS: BP 95/63; PULSE 88; RESP 12; TEMP 36.8; O2SAT 99; BMI 21.7
[2025-01-21] MEDS: LACTATED RINGERS 1,000 ML 150 ML IV CONT (09:47)
--- NOTE | 2025-01-21 10:12 | PM.HPGS ---
History of Present Illness History of Present Illness Consent: Risks, benefits, and alternatives have been discussed and questions answered. Patient agrees to proceed with procedure. Chief complaint: Dysphagia, unspecified, GERD Narrative: Karol Bautista is a 69 year old female with recent hospitalization after odynophagia- probably was pill esophagitis, never had EGD. Also prescribed omeprazole that helped her gerd, wonder if she could have ppi again Review of Systems Review of Systems: All systems reviewed & are unremarkable except as noted in HPI and below PMFSH Past Medical History Medical History Screening mammogram, encounter for Encounter for special screening examination for neoplasm of cervix GERD (gastroesophageal reflux disease) CAD (coronary artery disease) Non-cardiac chest pain Odynophagia Leaky heart valve URI, acute Screening mammogram, encounter for Pruritic rash Internal hemorrhoids Dietary counseling and surveillance (09/21/16) Colon cancer screening Bilateral lower extremity edema High cholesterol Asthma Surgical History Surgical History History of cardiac cath Jun 2024 History of hysterectomy, 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 History of dilation and curettage (07/14/03) hscope d&c/endometrial ablation--menometrorrhagia History of endometrial ablation (07/14/03) hscope d&c/endometrial ablation--menometrorrhagia History of partial thyroidectomy (~2003) right thyroidectomy History of cholecystectomy (~1999) History of 1990,1996 Family History Family History Mother Dementia Chronic renal failure Hypertension Father Cerebrovascular accident A-fib Social History Social History Smoking status: Never smoker Second hand tobacco smoke exposure: Yes Alcohol intake: never Substance use: never Substance use type: does not use Do You Feel Safe in your Home?: Yes Lack of Transportation: No Lack of Food: Never True Current Housing: Decline to Answer Concerned About Future Housing: Decline to Answer Difficulty Paying Gas/Electric Bills: Decline to Answer Difficulty Paying for Meds: Decline to Answer Currently Unemployed: Decline to Answer Education: Decline to Answer Difficulty w/ Childcare or Family Care: Decline to Answer Living arrangements: with family Spiritual care concerns: No Meds Home Medications and Allergies Home Medications ?Medication ?Instructions ?Recorded ?Confirmed ?Type vehicle base no.24 (bulk) See Rx Instructions miscellaneous 06/20/19 01/21/25 History (Versabase Cream) .COMPLEX albuterol sulfate 90 mcg/actuation 2 inh inhalation Q4-6H PRN 03/22/23 01/13/25 Rx aerosol inhaler (Ventolin HFA) shortness of breath or wheezing #18 grams estradiol 0.01% (0.1 mg/gram) 1 g vaginal 2XW 07/17/23 01/21/25 History vaginal cream (Estrace) semaglutide (weight loss) 2.4 2.4 mg subcut WEEKLY 07/17/23 01/21/25 History mg/0.75 mL subcutaneous pen injector metoprolol succinate 25 mg 12.5 mg PO HS 01/17/24 01/21/25 History tablet,extended release 24 hr rosuvastatin 20 mg tablet 20 mg PO HS 01/17/24 01/21/25 History clopidogrel 75 mg tablet 75 mg PO DAILY 08/05/24 01/21/25 History Balance of Nature vitamins See Rx Instructions .Route .COMPLEX 10/12/24 01/21/25 History fruit/vegetable Eye promise OTC See Rx Instructions .Route .COMPLEX 10/12/24 01/21/25 History alprazolam 0.25 mg tablet 0.125 mg PO HS PRN anxiety 10/12/24 01/13/25 History famotidine 20 mg tablet (Pepcid) 20 mg PO DAILY 10/12/24 01/21/25 History liothyronine 5 mcg tablet 15 mcg PO QAM 10/12/24 01/21/25 History loratadine 10 mg tablet 10 mg PO DAILY 10/12/24 01/21/25 History magnesium glycinate 400 mg PO HS for sleep 10/12/24 01/21/25 History ondansetron 4 mg disintegrating 4 mg translingual Q8H PRN nausea 10/12/24 01/13/25 History tablet and vomiting prasterone (DHEA) 25 mg capsule 25 mg PO QAM 10/12/24 01/21/25 History pro-biotic See Rx Instructions .Route .COMPLEX 10/12/24 01/21/25 History acetaminophen 325 mg tablet 650 mg (2 x 325 mg) PO Q4H PRN 10/13/24 01/13/25 Rx Mild Pain (1-3) Or Fever #30 tabs omeprazole 40 mg capsule,delayed 40 mg PO DAILY #30 caps 10/13/24 01/13/25 Rx release mometasone-formoterol HFA 200 See Rx Instructions .Route 11/04/24 01/21/25 Rx mcg-5 mcg/actuation aerosol .COMPLEX #13 grams inhaler (Dulera) estradiol 1 mg tablet 1 mg PO DAILY #90 tabs 11/05/24 01/21/25 Rx progesterone micronized 200 mg 200 mg PO QHS 90 days #90 caps 11/05/24 01/21/25 Rx capsule (Prometrium) montelukast 10 mg tablet See Rx Instructions .Route 11/06/24 01/21/25 Rx .COMPLEX #90 tabs Synthroid 88 mcg tablet 88 mcg PO DAILY #90 tabs 11/25/24 01/21/25 Rx (levothyroxine) coQ10 (ubiquinol) 100 mg capsule 100 mg PO DAILY 01/13/25 01/21/25 History (Qunol Yeison CoQ10) saffron extract 176.5 mg tablet 176.5 mg PO HS 01/13/25 01/21/25 History Allergies Allergy/AdvReac Type Severity Reaction Status Date / Time codeine AdvReac Mild Headache Verified 01/21/25 09:33 prochlorperazine AdvReac Mild Headache Verified 01/21/25 09:33 morphine AdvReac Headache Verified 01/21/25 09:33 Vital Signs Vital Signs - 24 hr 01/21/25 09:28 Temperature 98.2 F Pulse Rate 88 Respiratory Rate 12 Blood Pressure 95/63 L Pulse Oximetry 99 Oxygen Delivery Room Air Exam Const: General: comfortable and no acute distress HENMT: Face/Nose/Sinus: Normal nares present Eyes: General: appearance normal, both eyes and all related structures Neck: Neck: no JVD Resp: Auscultation: clear to auscultation bilaterally Cardio: Rate: regular rate Rhythm: regular rhythm GI: Inspection: non-distended GI Palp: Yes Soft to palpation Skin: General skin exam: normal color Neuro: General: gait normal Speech: normal speech Extrem: General: normal to inspection Psych: Mental Status: mental status grossly normal Assessment and Plan Assessment and plan (1) GERD (gastroesophageal reflux disease): Code(s): K21.9 - Gastro-esophageal reflux disease without esophagitis Status: Acute Assessment and Plan: egd with bx
[2025-01-21] MEDS: BENZOCAINE (*SP) 60 ML SPRAY CAN (HURRICAINE) 1 SPRAY MUCOUS MEM (10:14)
--- NOTE | 2025-01-21 10:19 | S_PTH ---
PATIENT: Karol Bautista LOC: [facility] Tobar#:[id number] AGE/SX: 69/F ROOM: RE01/21/[address]: Edd Espitia MD : 1955 BED: DIS: 01/21/2025 SPEC #: [id number] RECD: 01/21/25 13:20 STATUS: MATTHEW REErwin #: [id number] ELPIDIO: 01/21/25 10:[address]: Edd Espitia DEPT: [facility] Surgical RECD BY: Janelle Cuevas ENTERED: 01/21/25 13:21 SP TYPE: Surgical OTHR DR: Young Byrd DO Tissues: A - Gastric Biopsy Procedures: Hematoxylin and Eosin Stain Gross and Microscopic Level 4
[2025-01-21 10:22] VITALS: BP 101/55; PULSE 86; RESP 19; O2SAT 100
[2025-01-21 10:32] VITALS: BP 110/68; PULSE 88; RESP 23; O2SAT 100
[2025-01-21 10:42] VITALS: BP 117/70; PULSE 84; RESP 19; O2SAT 99
--- NOTE | 2025-02-20 14:07 | P.PNAN_ITS ---
Anes - Initial Pre Proc Eval Procedure: Operation Date: 01/21/25 11:00 Proposed Procedures p Esophagogastroduodenoscopy - Edd Espitia MD Date/Time: 02/20/25 14:07 Surgeon: Edd Espitia MD Pre Op Diagnosis: Dysphagia, unspecified, GERD Patient Data Age: 69 Gender: F Height: 1.55 m Weight: 52.3 kg Last Vital Signs Temp 98.2 F 01/21/25 09:28 Pulse 84 01/21/25 10:42 Resp 19 01/21/25 10:42 BP 117/70 01/21/25 10:42 Pulse Ox 99 01/21/25 10:42 O2 Del Method Room Air 01/21/25 10:42 Allergies Allergy/AdvReac Type Severity Reaction Status Date / Time codeine AdvReac Mild Headache Verified 01/21/25 09:33 prochlorperazine AdvReac Mild Headache Verified 01/21/25 09:33 morphine AdvReac Headache Verified 01/21/25 09:33 Home Medications ?Medication ?Instructions ?Recorded ?Confirmed ?Type vehicle base no.24 (bulk) See Rx Instructions miscellaneous 06/20/19 01/21/25 History (Versabase Cream) .COMPLEX albuterol sulfate 90 mcg/actuation 2 inh inhalation Q4-6H PRN 03/22/23 01/13/25 Rx aerosol inhaler (Ventolin HFA) shortness of breath or wheezing #18 grams estradiol 0.01% (0.1 mg/gram) 1 g vaginal 2XW 07/17/23 01/21/25 History vaginal cream (Estrace) semaglutide (weight loss) 2.4 2.4 mg subcut WEEKLY 07/17/23 01/21/25 History mg/0.75 mL subcutaneous pen injector metoprolol succinate 25 mg 12.5 mg PO HS 01/17/24 01/21/25 History tablet,extended release 24 hr rosuvastatin 20 mg tablet 20 mg PO HS 01/17/24 01/21/25 History clopidogrel 75 mg tablet 75 mg PO DAILY 08/05/24 01/21/25 History Balance of Nature vitamins See Rx Instructions .Route .COMPLEX 10/12/24 01/21/25 History fruit/vegetable Eye promise OTC See Rx Instructions .Route .COMPLEX 10/12/24 01/21/25 History alprazolam 0.25 mg tablet 0.125 mg PO HS PRN anxiety 10/12/24 01/13/25 History famotidine 20 mg tablet (Pepcid) 20 mg PO DAILY 10/12/24 01/21/25 History liothyronine 5 mcg tablet 15 mcg PO QAM 10/12/24 01/21/25 History loratadine 10 mg tablet 10 mg PO DAILY 10/12/24 01/21/25 History magnesium glycinate 400 mg PO HS for sleep 10/12/24 01/21/25 History ondansetron 4 mg disintegrating 4 mg translingual Q8H PRN nausea 10/12/24 01/13/25 History tablet and vomiting prasterone (DHEA) 25 mg capsule 25 mg PO QAM 10/12/24 01/21/25 History pro-biotic See Rx Instructions .Route .COMPLEX 10/12/24 01/21/25 History acetaminophen 325 mg tablet 650 mg (2 x 325 mg) PO Q4H PRN 10/13/24 01/13/25 Rx Mild Pain (1-3) Or Fever #30 tabs omeprazole 40 mg capsule,delayed 40 mg PO DAILY #30 caps 10/13/24 01/13/25 Rx release mometasone-formoterol HFA 200 See Rx Instructions .Route 11/04/24 01/21/25 Rx mcg-5 mcg/actuation aerosol .COMPLEX #13 grams inhaler (Dulera) estradiol 1 mg tablet 1 mg PO DAILY #90 tabs 11/05/24 01/21/25 Rx progesterone micronized 200 mg 200 mg PO QHS 90 days #90 caps 11/05/24 01/21/25 Rx capsule (Prometrium) montelukast 10 mg tablet See Rx Instructions .Route 11/06/24 01/21/25 Rx .COMPLEX #90 tabs coQ10 (ubiquinol) 100 mg capsule 100 mg PO DAILY 01/13/25 01/21/25 History (Qunol Yeison CoQ10) saffron extract 176.5 mg tablet 176.5 mg PO HS 01/13/25 01/21/25 History pantoprazole 40 mg tablet,delayed 40 mg PO QAM #30 tabs 01/21/25 Rx release Synthroid 75 mcg tablet 75 mcg PO DAILY #90 tabs 02/03/25 Rx (levothyroxine) Patient hx anesthesia problems: none Family hx anesthesia problems: none Results Review: All pre-operative results and documents have been reviewed as part of the pre- operative evaluation. [facility] Past Medical History Medical History Breast asymmetry Screening mammogram, encounter for Encounter for special screening examination for neoplasm of cervix GERD (gastroesophageal reflux disease) CAD (coronary artery disease) Non-cardiac chest pain Odynophagia Leaky heart valve URI, acute Screening mammogram, encounter for Pruritic rash Internal hemorrhoids Dietary counseling and surveillance (09/21/16) Colon cancer screening Bilateral lower extremity edema High cholesterol Asthma Surgical History Surgical History History of cardiac cath Jun 2024 History of hysterectomy, 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 History of dilation and curettage (07/14/03) hscope d&c/endometrial ablation--menometrorrhagia History of endometrial ablation (07/14/03) hscope d&c/endometrial ablation--menometrorrhagia History of partial thyroidectomy (~2003) right thyroidectomy History of cholecystectomy (~1999) History of 1990,1996 Family History Family History Mother Dementia Chronic renal failure Hypertension Father Cerebrovascular accident A-fib Social History Social History Smoking status: Never smoker Second hand tobacco smoke exposure: Yes Alcohol intake: never Substance use: never Substance use type: does not use Do You Feel Safe in your Home?: Yes Lack of Transportation: No Lack of Food: Never True Current Housing: Decline to Answer Concerned About Future Housing: Decline to Answer Difficulty Paying Gas/Electric Bills: Decline to Answer Difficulty Paying for Meds: Decline to Answer Currently Unemployed: Decline to Answer Education: Decline to Answer Difficulty w/ Childcare or Family Care: Decline to Answer Living arrangements: with family Spiritual care concerns: No Anes - Eval Final PreProcedure Day of Procedure 02/20/25 14:07 Patient weight: normal Lungs: normal air movement Airway: Mallampati scale class II Neurological: alert and oriented Last oral intake: >/= 8 hours Emergent: no Anesthetic plan: proceed Anesthesia type and monitoring: general GIVS and standard monitoring Results Review: All pre-operative results and documents have been reviewed as part of the pre- operative evaluation. Informed Consent: The patient's anesthetic plan and its attendant risks and benefits were discussed with the patient/family/POA. Questions were solicited and answers provided to the satisfaction of the patient/family/POA. Note accidentally note completed on DOS. Entered at this time to the best of my recollection after chart review.
== END 2025-01-21 10:56 | disposition home or self-care (01) ==
PROVIDERS: PCP Internal Medicine; Referring Provider Internal Medicine Gastroenterology; Visit Provider Internal Medicine Gastroenterology
PROC: 0DJ08ZZ Inspection of Upper Intestinal Tract, Via Natural or Artificial Opening Endoscopic (ICD-10-PCS; CPT 43239; principal; 2025-01-21 11:00)
DX: K21.9 Gastro-esophageal reflux disease without esophagitis (principal); R13.10 Dysphagia, unspecified
CPT/HCPCS: 43239; 88305; J2003; J2704; J7120

== ENCOUNTER 2025-01-28 14:22 | Outpatient (CLI) | payer MEDICARE, SELFPAY ==
--- NOTE | ~2025-01-28 | MM_ITS ---
EXAMINATION: screening [facility] BI w jackeline INDICATION: Asymptomatic, referred for screening mammogram COMPARISON: 07/29/2020 through 05/17/2010 TECHNIQUE: Digital Breast Tomosynthesis CC, MLO views of Both breasts were obtained with computer-ai ded detection to assist in interpretation of the study. FINDINGS: The breasts are heterogeneously dense, which may obscure small masses. There is an asymmetry seen on the cc view in the Lateral left breast at middle depth, centered at 5 c m posterior to the nipple. Elsewhere, there are no mammographic features of malignancy. IMPRESSION: 1. Left breast Asymmetry. 2. No evidence of malignancy in the Right breast. RECOMMENDATION: Left breast Diagnostic mammogram with true lateral, appropriate spot compression views and an ultraso und if needed. BI-RADS Category 0: Incomplete: Needs additional imaging evaluation. Reviewed, dictated and finalized at location B. IMPRESSION: 1. Left breast Asymmetry. 2. No evidence of malignancy in the Right breast. RECOMMENDATION: Left breast Diagnostic mammogram with true lateral, appropriate spot compressio n views and an ultrasound if needed. BI-RADS Category 0: Incomplete: Needs additional imaging evaluation.
--- OUTSIDE RECORDS SUMMARY | 2025-01-28 14:28 | XMS_ITS | Continuity of Care Document ---
Author Organization [facility] Address [address] [place] [address] Phone Care Team Providers Care Tactical Deception Plans Officer Name Role Phone Cartagena OD, Basim Unavailable Unavailable Advance Directives Directive Yes / No Effective Date File Name No Information Encounters Encounter Description Practice Location Reason(s) For Visit Diagnoses Date Provider Providers Copied on Encounter [facility], [address], [place], [place], [id number], [place] tel:[phone] [facility] No Information 1-200 0 Cartagena OD Basim. [address], [place], [address], [place]. tel:[phone] Family History Family Member Type Diagnosis Age At Onset No Information Payers Payer name Insurance type Covered green party ID Authoriza tion(s) No Information Social History [...]
--- OUTSIDE RECORDS SUMMARY | 2025-01-28 14:28 | XMS_ITS | Clinical Summary ---
Author Organization [facility] Address [address] [place] [place] [address] Care Team Providers Care Identifier Horse Name Role Phone Irving Joy Fernanda BRUNNRE Primary Care Provider [phone] Source Comments [facility],non-owned Affiliates and Associated Physician Practices is amultiple site organization consisting of ambulatory clinics and hospital sitesin [place], [place], [place] and [place]. This disclosure is being madepursuant to the Care Everywhere program and may not contain all information available regarding this patient. 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 Gender Identity Not on file Sexual Orientation [...] SCREENING 1955 LIPID TESTING 1955 MAMMOGRAM 1955 MEDICARE AWV 12 MONTHS 1955 HEPATITIS C SCREENING 04/02/1971 DTAP/TDAP/TD VACCINES [...] patient's age to complete this topic Insurance [facility] MEDICARE MEDICARE SUPPLEMENT PAYOR GENERIC SELF PAY NO INSURANCE Member Subscriber Plan / Payer (Ef fective for All Dates) Name:Mabel Bautista Member ID:Not on file Relation to Subscriber:Not on file Name:MABEL BAUTISTA Subscriber ID:Not on file (Home) [address]: [address] [place] [id number] Payer ID:Not on file Group ID:Not on file Type:Self Pay Address: [place], [place] Care Teams Identifier Horse Relationship Specialty Start Date End Date Irving Joy DO [address] [place] [address] PCP - General Internal Medicine 06/20/17
== END 2025-01-28 14:23 | disposition home or self-care (01) ==
LOC: ANHIMG 14:23
PROVIDERS: PCP Internal Medicine; Visit Provider Obstetrics & Gynecology
DX: Z12.31 Encounter for screening mammogram for malignant neoplasm of breast (principal); R92.8 Other abnormal and inconclusive findings on diagnostic imaging of breast
CPT/HCPCS: 77063; 77067

== ENCOUNTER 2025-02-24 12:18 | Outpatient (CLI) | payer MEDICARE, SELFPAY ==
--- NOTE | ~2025-02-24 | MMUS_ITS ---
EXAMINATION: MM diagnostic willie LT w jackeline, US breast LT limited HISTORY: Left breast asymmetry TECHNIQUE: Additional 3-D tomosynthesis images of the left breast were performed and synthetic 2-D im ages were generated. CAD analysis was submitted and interpreted. High resolution limited left breast ultrasound was performed. COMPARISON: 01/28/2025, 09/21/2020 BREAST PARENCHYMAL COMPOSITION:Dense: The breasts are heterogeneously dense, which may obscure small masses. FINDINGS: MAMMOGRAPHIC FINDINGS: Spot compression views at the outer left breast demonstrate questionable persistent low-density obscu red mass measuring up to 6 mm in diameter. ULTRASOUND: At 12:00 position left breast, 3 cm in the nipple, there is a 3 cm anechoic cyst with posterior throu gh transmission. At the 2:00 position left breast, 2 cm from the nipple, there are 2 adjacent cysts v ersus septated cyst, measuring up to 1.3 cm in overall maximum dimension. No solid or otherwise suspi cious mass seen. IMPRESSION: No evidence of malignancy. Benign breast cyst at the upper and upper outer left breast, as detailed above. BI-RADS Category 2: Benign finding(s). Reviewed, dictated and finalized at location . IMPRESSION: No evidence of malignancy. Benign breast cyst at the upper and upper outer lef t breast, as detailed above. BI-RADS Category 2: Benign finding(s).
--- OUTSIDE RECORDS SUMMARY | 2025-02-24 13:06 | XMS_ITS | Clinical Summary ---
Author Organization [facility] Address [address] [place] [address] Care Team Providers Care Manager Project Name Role Phone Irving Joy Fernanda BRUNNER Primary Care Provider [phone] Source Comments [facility],non-owned Affiliates and Associated Physician Practices is amultiple site organization consisting of ambulatory clinics and hospital sitesin [place], [place], [place] and [place]. This disclosure is being madepursuant to the Care Everywhere program and may not contain all information available regarding this patient. 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
== END 2025-02-24 12:19 | disposition home or self-care (01) ==
LOC: ANHIMG 12:19
PROVIDERS: PCP Internal Medicine; Visit Provider Obstetrics & Gynecology
DX: N60.12 Diffuse cystic mastopathy of left breast (principal)
CPT/HCPCS: 76642; 77061; 77065; G0279